=== PATIENT | male | born 1985 | race Caucasian/White ===

== ENCOUNTER 2023-03-13 00:22 | Day surgery (SDC) | payer MEDICARE, SELFPAY ==
[2023-02-22 08:49] VITALS: BMI 23.3
--- NOTE | 2023-03-11 11:13 | SUR.PREOP ---
Patient called regarding upcoming procedure. Reviewed preop instructions, appointment times, and procedure prep.
[2023-03-13 09:23] VITALS: BP 142/74; PULSE 74; RESP 18; TEMP 36.9; O2SAT 100
[2023-03-13] MEDS: LACTATED RINGERS 1,000 ML 150 ML IV CONT (09:31)
--- NOTE | 2023-03-13 09:48 | WPDANESEPPF ---
Anes - Initial Pre Proc Eval Procedure: Operation Date: 03/13/23 10:30 Proposed Procedures p Esophagogastroduodenoscopy - Chip Moncada MD Date/Time: 03/13/23 09:48 Surgeon: Chip Moncada MD Pre Op Diagnosis: Dysphagia,unspecified Patient Data Age: 37 Gender: M Height: 1.8 m Weight: 79.9 kg Last Vital Signs Temp 98.4 F 03/13/23 09:23 Pulse 74 03/13/23 09:23 Resp 18 03/13/23 09:23 BP 142/74 H 03/13/23 09:23 Pulse Ox 100 03/13/23 09:23 O2 Del Method Room Air 03/13/23 09:23 Allergies Allergy/AdvReac Type Severity Reaction Status Date / Time Penicillins Allergy Hives Verified 03/13/23 09:22 Home Medications Medication Instructions Recorded Confirmed Type No Home Medications 02/22/23 03/13/23 History Patient hx anesthesia problems: none Family hx anesthesia problems: none Results Review: All pre-operative results and documents have been reviewed as part of the pre-operative evaluation. [facility] Social History Social History Smoking status: Current every day smoker Tobacco type: e-cigarettes/vaping Alcohol intake: current Drinks per week: 4 Substance use type: does not use Living arrangements: with family Spiritual care concerns: No Anes - Eval Final PreProcedure Day of Procedure 03/13/23 09:48 Patient weight: normal Heart: regular rate and rhythm Lungs: clear to auscultation Airway: Mallampati scale class II Neurological: alert and oriented Last oral intake: >/= 8 hours ASA classification: II Emergent: no Anesthetic plan: proceed Anesthesia type and monitoring: general GIVS and standard monitoring Results Review: All pre-operative results and documents have been reviewed as part of the pre-operative evaluation. Informed Consent: The patient's anesthetic plan and its attendant risks and benefits were discussed with the patient/family/POA. Questions were solicited and answers provided to the satisfaction of the patient/family/POA.
--- NOTE | 2023-03-13 10:42 | PM.HPGS ---
History of Present Illness History of Present Illness Consent: Risks, benefits, and alternatives have been discussed and questions answered. Patient agrees to proceed with procedure. Chief complaint: Dysphagia,unspecified Narrative: Calvin Clinton is a 37 year old male with dysphagia after eating, never had EGD, he is not taking ppi Review of Systems Constitutional: Constitutional: Denies headache(s) and Denies weakness Eyes: Eyes: Denies blurry vision ENT: Reports Normal hearing present, Denies headache(s) and Denies neck pain Cardiovascular: Cardiovascular: Denies chest pain and Denies dyspnea Respiratory: Respiratory: Denies dyspnea Gastrointestinal: Gastrointestinal: Reports no additional gastrointestinal complaints Genitourinary: Genitourinary: Denies dysuria Musculoskeletal: Musculoskeletal: Denies neck pain Integumentary/Breasts: Skin/Breast: Denies dry skin Neurologic: Reports Normal hearing present, Denies headache(s) and Denies weakness Psychiatric: Psychiatric: Denies anxiety Endocrine: Endocrine: Denies change in body appearance Hematologic/Lymphatic: Hematologic/Lymphatic: Denies easy bleeding Allergic/Immunologic: Allergic/Immunologic: Denies urticaria PMFSH Past Medical History Medical History (Updated 03/13/23 @ 10:42 by Chip Moncada MD) Dysphagia Social History Social History Smoking status: Current every day smoker Tobacco type: e-cigarettes/vaping Alcohol intake: current Drinks per week: 4 Substance use type: does not use Living arrangements: with family Spiritual care concerns: No Meds Home Medications and Allergies Home Medications Medication Instructions Recorded Confirmed Type No Home Medications 02/22/23 03/13/23 History Allergies Allergy/AdvReac Type Severity Reaction Status Date / Time Penicillins Allergy Hives Verified 03/13/23 09:22 Vital Signs Vital Signs - 24 hr 03/13/23 09:23 Temperature 98.4 F Pulse Rate 74 Respiratory Rate 18 Blood Pressure 142/74 H Pulse Oximetry 100 Oxygen Delivery Room Air Exam Const: General: comfortable and no acute distress HENMT: Face/Nose/Sinus: Normal nares present Eyes: General: appearance normal, both eyes and all related structures Neck: Neck: no JVD Resp: Auscultation: clear to auscultation bilaterally Cardio: Rate: regular rate Rhythm: regular rhythm GI: Inspection: non-distended GI Palp: Yes Soft to palpation Skin: General skin exam: normal color Neuro: General: gait normal Speech: normal speech Extrem: General: normal to inspection Psych: Mental Status: mental status grossly normal Assessment and Plan Assessment and plan (1) Dysphagia: Code(s): R13.10 - Dysphagia, unspecified Status: Acute Assessment and Plan: egd with bx will assess if needs dilatation
[2023-03-13] MEDS: BENZOCAINE (*SP) 60 ML SPRAY CAN (HURRICAINE) 1 SPRAY MUCOUS MEM (10:51)
[2023-03-13 11:10] VITALS: BP 105/63; PULSE 83; RESP 21; O2SAT 100
[2023-03-13 11:20] VITALS: BP 100/63; PULSE 75; RESP 20; O2SAT 100
[2023-03-13 11:30] VITALS: BP 114/70; PULSE 72; RESP 23; O2SAT 100
== END 2023-03-13 11:44 | disposition home or self-care (01) ==
PROVIDERS: PCP Internal Medicine; Visit Provider Internal Medicine Gastroenterology
PROC: 0DJ08ZZ Inspection of Upper Intestinal Tract, Via Natural or Artificial Opening Endoscopic (ICD-10-PCS; CPT 43235; principal; 2023-03-13 10:30)
DX: K22.2 Esophageal obstruction (principal); K20.0 Eosinophilic esophagitis; F17.290 Nicotine dependence, other tobacco product, uncomplicated
CPT/HCPCS: 43249; 43239; 88305; C1726; J2704; J7120

== ENCOUNTER 2024-06-22 12:40 | Outpatient (CLI) | payer MEDICARE, SELFPAY ==
--- NOTE | ~2024-06-22 | XR_ITS ---
Clinical Indication: Asthma PA and lateral views of the chest: Comparison: None Findings: The lungs are clear, without evidence of focal consolidation or pleural effusion. Cardiome diastinal silhouette is within normal limits. Bones and soft tissues are unremarkable. Impression: Normal chest. Reviewed, dictated and finalized at location . Impression: Normal chest.
--- OUTSIDE RECORDS SUMMARY | 2024-06-22 14:03 | XMS_ITS | Data Portability ---
Author Organization [employer], Main Office Address [address] [place] [address] Assessment No assessment recorded. Plan of Treatment Reminders Order Date Submit Date Provider Last Modified By Organization Details Last Modified Time Details Appointments None recorded. Lab vitamin B12, serum 024 024 [email or web address] [facility] - Outpatient Lab, [address] [place], [address], 4 12:08:57 magnesium , serum or plasma 024 024 [email or web address] [facility] Outpatient Lab, [address] [place], [address], 4 12:08:57 lipid panel, serum 024 024 [facility] Outpatient Lab, [address] [place], [address], 4 14:04:37 CMP, serum or plasma 024 024 [facility] Outpatient Lab, [address] [place], [address], 4 14:04:41 CBC w/ auto diff 024 024 [email or web address] [facility] Outpatient Lab, [address] [place], [address], 4 12:08:57 testoster one, free + total, serum 024 024 [email or web address] [facility] Outpatient Lab, [address] [place], [address], 4 12:08:57 TSH, serum or plasma [id number] [place] [address] Outpatient Lab, [address] [place], [address], 4 12:08:57 T4, free, serum [id number] Outpatient Lab, [address] [place], [address], 4 12:08:58 lipid panel, serum 023 023 [facility] Outpatient Lab, [address] [place], [address], 3 14:40:36 CMP, serum or plasma 023 023 [facility] Outpatient Lab, [address] [place], [address], 3 14:40:39 CBC w/ auto diff 023 023 [facility] Outpatient Lab, [address] [place], [address], 3 13:09:46 TSH, serum or plasma 023 023 [facility] Outpatient Lab, [address] [place], [address], 3 18:43:36 T4, free, serum 023 023 [facility] Outpatient Lab, [address] [place], [address], 3 18:39:57 testoster one, total, serum [id number] [place] [address] Outpatient Lab, [address] [place], [address], 3 16:15:30 Referral None recorded. Procedures None recorded. Surgeries None recorded. Imaging None recorded. Medication Orders None recorded. Patient TargetsNo targets recorded. Patient Instructions Encounter Date Encounter Id Patient Instructions Last Modified By Organization Details Last Modified Time 07/24/2022 [id number] Follow-up for Klinefelter syndrome-testicula r hypofunction. Will check blood work consisting of CBC, CMP, lipid and thyroid. Continue on current Rx follow-up in six months [email or web address] Not available 07/24/2022 11:19:26 01/22/2023 [id number] Follow-up dysphagia -testicular hypofunction -Klinefelter syndrome. Will continue on current Rx will set up for upper endoscopy to further assess. Has had recent blood work performed which look otherwise adequate. Will continue with current Rx and follow-up in six months Portions of the record may have been created with voice recognition software. Occasional wrong-word or [id number] substitutions may have occurred due to the inherent limitations of voice recognition software. Read the chart carefully and recognize, using context, where substitutions have occurred. Set up for upper endoscopy for dysphagia Next Appt: 6 Months Approximate Date: 07/21/2023 [email or web address] Not available 01/22/2023 12:32:46 07/23/2023 [id number] Klinefelter syndrome, eosinophilic esophagitis and testicular hypofunction. Plan is to continue on current Rx will check blood work consisting of CBC, CMP, lipid, thyroid and testosterone levels. Continue on current Rx follow-up in six months Next Appointment: 6 Months Approximate Date: 01/19/2024 Portions of the record may have been created with voice recognition software. Occasional wrong-word or wzlty-[id number] substitutions may have occurred due to the inherent limitations of voice recognition software. Read the chart carefully and recognize, using context, where substitutions have occurred. [email or web address] Not available 07/23/2023 14:38:48 01/21/2024 [id number] Eosinophilic esophagitis, hyperlipidemia, Klinefelter syndrome and obesity class one all clinically stable. Does not any blood at this time instructed patient and patient's family that if symptoms persist may need to consider GI referral. May need a colonoscopy for further evaluation although does not appear to be anything serious at this time since he is unable to describe the frequency, intensity or specific natures of the discomfort. Follow Up: 6 Months Approximate Date: 07/19/2024 Created: Stephen Clemons M.D. 01.21.2024 01:43 PM Portions of the record may have been created with voice recognition software. Occasional wrong-word or fxinz-s-zthp substitutions may have occurred due to the inherent limitations of voice recognition software. Read the chart carefully and recognize, using context, where substitutions have occurred. [email or web address] Not available 01/21/2024 14:43:17 Reason for Referral None Reported. Results Created Date Observation Date Name Description Value Unit Range Abnormal Flag Note LastModifiedBy Organization Detail LastModifiedTime 07/25/1907/24/2022 CBC/C OMPLE TE BLD COUNT W/DIF F white blood cells 5.6 x10'3 /uL 4.2-10 .8 Not Available [facility] (Lab) [address] [place], [address], 07/24/2022 13:09:46 07/25/1907/24/2022 CBC/C OMPLE TE BLD COUNT W/DIF F red blood cells 4.67 x10'6 /uL 4.10-5 .80 Not Available [facility] (Lab) [address] [place], [address], 07/24/2022 13:09:46 07/25/1907/24/2022 CBC/C OMPLE TE BLD COUNT W/DIF F hemoglobin 14.4 g/dL 13.2-1 7.0 Not Available [facility] (Lab) [address] [place], [address], 07/24/2022 13:09:46 07/25/19 23 07/24/2022 CBC/C OMPLE TE BLD COUNT W/DIF F hematocrit 44.3 % 39.3-5 0.0 Not Available [facility] (Lab) [address] [place], [address], 07/24/2022 13:09:46 07/25/19 23 07/24/2022 CBC/C OMPLE TE BLD COUNT W/DIF F mean red cell volume 94.9 fL 80.0-9 7.0 Not Available [facility] (Lab) [address] [place], [address], 07/24/2022 13:09:46 07/25/19 23 07/24/2022 CBC/C OMPLE TE BLD COUNT W/DIF F mean red cell hemoglobin 30.8 pg 27.0-3 3.0 Not Available [facility] (Lab) [address] [place], [address], 07/24/2022 13:09:46 07/25/19 23 07/24/2022 CBC/C OMPLE TE BLD COUNT W/DIF F mean RBC HGB concentratio n 32.5 g/dL 31.0-3 6.0 Not Available [facility] (Lab) [address] [place], [address], 07/24/2022 13:09:46 07/25/19 23 07/24/2022 CBC/C OMPLE TE BLD COUNT W/DIF F red cell distribution width 13.4 % 11.8-1 5.5 Not Available [facility] (Lab) [address] [place], [address], 07/24/2022 13:09:46 07/25/19 23 07/24/2022 CBC/C OMPLE TE BLD COUNT W/DIF F platelets 229 x10'3 /uL 150-40 0 Not Available [facility] (Lab) [address] [place], [address], 07/24/2022 13:09:46 07/25/19 23 07/24/2022 CBC/C OMPLE TE BLD COUNT W/DIF F mean platelet volume 10.3 fL 9.0-12 .4 Not Available [facility] (Lab) [address] [place], [address], 07/24/2022 13:09:46 07/25/19 23 07/24/2022 CBC/C OMPLE TE BLD COUNT W/DIF F neutrophils 53.2 % 39.0-7 2.0 Not Available [facility] (Lab) [address] [place], [address], 07/24/2022 13:09:46 07/25/1907/24/2022 CBC/C OMPLE TE BLD COUNT W/DIF F lymphocytes 34.3 % 16.0-4 7.0 Not Available [facility] (Lab) [address] [place], [address], 07/24/2022 13:09:46 07/25/1907/24/2022 CBC/C OMPLE TE BLD COUNT W/DIF F monocytes 8.9 % 5.0-12 .0 Not Available [facility] (Lab) [address] [place], [address], 07/24/2022 13:09:46 07/25/1907/24/2022 CBC/C OMPLE TE BLD COUNT W/DIF F eosinophils 2.9 % 1.0-7. 0 Not Available [facility] (Lab) [address] [place], [address], 07/24/2022 13:09:46 07/25/1907/24/2022 CBC/C OMPLE TE BLD COUNT W/DIF F basophils 0.5 % 0.0-2. 0 Not Available [facility] (Lab) [address] [place], [address], 07/24/2022 13:09:46 07/25/1907/24/2022 CBC/C OMPLE TE BLD COUNT W/DIF F immature granulocytes 0.2 % 0.00-0 .50 Not Available [facility] (Lab) [address] [place], [address], 07/24/2022 13:09:46 07/25/19 23 07/24/2022 CBC/C OMPLE TE BLD COUNT W/DIF F neutrophils, absolute count 2.98 x10'3 /uL 1.5-8. 0 Not Available [facility] (Lab) [address] [place], [address], 07/24/2022 13:09:46 07/25/19 23 07/24/2022 CBC/C OMPLE TE BLD COUNT W/DIF F lymphocytes, absolute count 1.92 x10'3 /uL 1.07-3 .43 Not Available [facility] (Lab) [address] [place], [address], 07/24/2022 13:09:46 07/25/19 23 07/24/2022 CBC/C OMPLE TE BLD COUNT W/DIF F monocytes, absolute count 0.50 x10'3 /uL 0.29-0 .99 Not Available [facility] (Lab) [address] [place], [address], 07/24/2022 13:09:46 07/25/19 23 07/24/2022 CBC/C OMPLE TE BLD COUNT W/DIF F eosinophils, absolute count 0.16 x10'3 /uL 0.02-0 .53 Not Available [facility] (Lab) [address] [place], [address], 07/24/2022 13:09:46 07/25/19 23 07/24/2022 CBC/C OMPLE TE BLD COUNT W/DIF F basophils, absolute count 0.03 x10'3 /uL 0.01-0 .08 Not Available [facility] (Lab) [address] [place], [address], 07/24/2022 13:09:46 07/25/19 23 07/24/2022 CBC/C OMPLE TE BLD COUNT W/DIF F immature granulocytes ,absolute 0.01 x10'3 /uL 0.00-0 .05 Not Available [facility] (Lab) [address] [place], [address], 07/24/2022 13:09:46 07/25/19 23 07/24/2022 CBC/C OMPLE TE BLD COUNT W/DIF F nucleated red blood cells 0.0 % -0 Not Available [facility] (Lab) [address] [place], [address], 07/24/2022 13:09:46 07/25/19 23 07/24/2022 CBC/C OMPLE TE BLD COUNT W/DIF F NRBC# 0.00 x10'3 /uL Not Available [facility] (Lab) [address] [place], [address], 07/24/2022 13:09:46 07/25/19 23 07/24/2022 LIPID PANEL cholesterol 176 mg/dL 140-19 9 NIH KENAN NSUS RECOM MENDA TION FOR [place] STERO L: ADULT CHILD LOW RISK: <200 <170 BORDE RLINE : <200- 239 ----- HIGH RISK: >240 >200 Not Available [facility] (Lab) [address] [place], [address], 07/24/2022 14:40:35 07/25/1907/24/2022 LIPID PANEL triglyceride s 63 mg/dL 0-150 NIH KENAN NSUS REPOR T RECOM MENDA TION FOR TRIGL YCERI BRYAN: ADULT CHILD LOW RISK: <150 ----- BODER LINE: 150-1 99 ----- HIGH RISK: >200 ----- Not Available [facility] (Lab) [address] [place], [address], 07/24/2022 14:40:35 07/25/1907/24/2022 LIPID PANEL HDL cholesterol 37 mg/dL 40- low Not Available [facility] (Lab) [address] [place], [address], 07/24/2022 14:40:35 07/25/1907/24/2022 LIPID PANEL LDL cholesterol, calculated 126 mg/dL 0-130 NIH KENAN NSUS REPOR T RECOM MENDA TIONS FOR LDL: ADULT CHILD LOW RISK <130 <110 (OPTI MAL LDL) <100 ----- BORDE RLINE : 130-1 59 ----- HIGH RISK: >160 >130 A TRIGL YCERI DE RESUL T >400 INVAL IDATE S THE CALCU LATIO N FOR LDL FRACT IONAT ION - THE LDL RESUL T WILL NOT BE REPOR HIRO. Not Available [facility] (Lab) [address] [place], [address], 07/24/2022 14:40:35 07/25/19 23 07/24/2022 COMPR EHENS MIMI METAB OLIC PANEL sodium 142 mmol/ L 137-14 5 Not Available [facility] (Lab) [address] [place], [address], 07/24/2022 14:40:39 07/25/19 23 07/24/2022 COMPR EHENS MIMI METAB OLIC PANEL potassium 4.1 mmol/ L 3.5-5. 1 Not Available [facility] (Lab) [address] [place], [address], 07/24/2022 14:40:39 07/25/19 23 07/24/2022 COMPR EHENS MIMI METAB OLIC PANEL chloride 104 mmol/ L 98-107 Not Available [facility] (Lab) [address] [place], [address], 07/24/2022 14:40:39 07/25/19 23 07/24/2022 COMPR EHENS MIMI METAB OLIC PANEL carbon dioxide 29 mmol/ L 22-30 Not Available [facility] (Lab) [address] [place], [address], 07/24/2022 14:40:39 07/25/19 23 07/24/2022 COMPR EHENS MIMI METAB OLIC PANEL anion gap 13.1 mmol/ L 14-22 low Not Available [facility] (Lab) [address] [place], [address], 07/24/2022 14:40:39 07/25/19 23 07/24/2022 COMPR EHENS MIMI METAB OLIC PANEL glucose 82 mg/dL 70-99 Not Available [facility] (Lab) [address] [place], [address], 07/24/2022 14:40:39 07/25/1907/24/2022 COMPR EHENS MIMI METAB OLIC PANEL BUN 11 mg/dL 8-19 Not Available [facility] (Lab) [address] [place], [address], 07/24/2022 14:40:39 07/25/19 23 07/24/2022 COMPR EHENS MIMI METAB OLIC PANEL creatinine 0.69 mg/dL 0.66-1 .25 Not Available [facility] (Lab) [address] [place], [address], 07/24/2022 14:40:39 07/25/19 23 07/24/2022 COMPR EHENS MIMI METAB OLIC PANEL GFR >60 Refer ence Range : [place] GFR Healt hy Adult : >60 mL/mi n/1.7 3 m2 Chron ic Kidne y Disea se: 15-60 mL/mi n/1.7 3 m2 Kidne y Failu re: <15/m L/min /1.73 m2 www.n iddk. nih.g ov The MDRD study equat ion has not been valid ated in child roxanna <18 years of age; pregn ant women ; the elder ly >85 years of age; or in some racia l or ethni c subgr oups, such as Hispa nics. Outsi de the valid ated alex eters , estim ated GFR is less accur ate, requi ring clini candy judgm ent on a case- by-ca se basis . Clini candy inter preta tion for other races and ages must be made by the clini dahlia. The MDRD study equat ion has not been valid ated for the evalu ation of serum creat inine relat ed to nutri liza l statu s or medic ation usage . For perso ns <18 years of age, a pedia tric GFR calcu lator is avail able on the [facility] websi te: https ://bridger cullen.o jessica/pr ofess ional s/kdo qi/gf r_cal culat or Not Available [facility] (Lab) [address] [place], [address], 07/24/2022 14:40:39 07/25/1907/24/2022 COMPR EHENS MIMI METAB OLIC PANEL alkaline phosphatase 86 U/L 38-126 Not Available [facility] (Lab) [address] [place], [address], 07/24/2022 14:40:39 07/25/19 23 07/24/2022 COMPR EHENS MIMI METAB OLIC PANEL alanine aminotransfe rase 36 U/L 0-50 Not Available [facility] (Lab) [address] [place], [address], 07/24/2022 14:40:39 07/25/19 23 07/24/2022 COMPR EHENS MIMI METAB OLIC PANEL aspartate aminotransfe rase 37 U/L 15-46 Not Available [facility] (Lab) [address] [place], [address], 07/24/2022 14:40:39 07/25/19 23 07/24/2022 COMPR EHENS MIMI METAB OLIC PANEL bilirubin, total 0.70 mg/dL 0.20-1 .30 Not Available [facility] (Lab) [address] [place], [address], 07/24/2022 14:40:39 07/25/19 23 07/24/2022 COMPR EHENS MIMI METAB OLIC PANEL calcium 9.3 mg/dL 8.4-10 .2 Not Available [facility] (Lab) [address] [place], [address], 07/24/2022 14:40:39 07/25/19 23 07/24/2022 COMPR EHENS MIMI METAB OLIC PANEL total protein 7.3 g/dL 6.3-8. 2 Not Available [facility] (Lab) [address] [place], [address], 07/24/2022 14:40:39 07/25/19 23 07/24/2022 COMPR EHENS MIMI METAB OLIC PANEL albumin 4.7 g/dL 3.4-5. 0 Not Available [facility] (Lab) [address] [place], [address], 07/24/2022 14:40:39 07/25/19 23 07/24/2022 COMPR EHENS MIMI METAB OLIC PANEL globulin 2.6 g/dL 2.6-4. 2 Not Available [facility] (Lab) [address] [place], [address], 07/24/2022 14:40:39 07/25/19 23 07/24/2022 COMPR EHENS MIMI METAB OLIC PANEL A/G ratio 1.8 ratio 1.0-2. 0 Not Available [facility] (Lab) [address] [place], [address], 07/24/2022 14:40:39 07/25/19 23 07/24/2022 T4 FREE free T4 1.14 NG/dL 0.78-2 .19 Not Available [facility] (Lab) [address] [place], [address], 07/24/2022 18:39:57 07/25/1907/24/2022 TSH thyroid-stim ulating hormone 0.337 uIU/m L 0.465- 4.680 low Not Available [facility] (Lab) [address] [place], [address], 07/24/2022 18:43:36 07/25/19 23 07/25/2022 TESTO STERO NE,TO COURTNEY-L ABCOR P testosterone 364 NG/dL 264-91 6 Adult male refer javy kennedy yevgeniy is based on a popul ation of healt hy nonob lalito males (BMI <30) betwe en 19 and 39 years old. Declan cyr et.al . JCEM 2017, 102;1 161-1 173. PMID: 13168 103. Perfo rmed at: [facility] ([facility]) [address] [place] [address] 126 Lab Direc tor: Roly zaldivar PhD, Phone : [phone] Not Available [facility] (Lab) [address] [place], [address], 07/25/2022 09:14:29 08/29/19 24 08/29/2023 CBC/C OMPLE TE BLD COUNT W/DIF F white blood cells 5.1 x10'3 /uL 4.2-10 .8 Not Available [facility] (Lab) [address] [place], [address], 08/29/2023 13:52:51 08/29/19 24 08/29/2023 CBC/C OMPLE TE BLD COUNT W/DIF F red blood cells 4.55 x10'6 /uL 4.10-5 .80 Not Available [facility] (Lab) [address] [place], [address], 08/29/2023 13:52:51 08/29/19 24 08/29/2023 CBC/C OMPLE TE BLD COUNT W/DIF F hemoglobin 14.0 g/dL 13.2-1 7.0 Not Available [facility] (Lab) [address] [place], [address], 08/29/2023 13:52:51 08/29/19 24 08/29/2023 CBC/C OMPLE TE BLD COUNT W/DIF F hematocrit 40.4 % 39.3-5 0.0 Not Available [facility] (Lab) [address] [place], [address], 08/29/2023 13:52:51 08/29/19 24 08/29/2023 CBC/C OMPLE TE BLD COUNT W/DIF F mean red cell volume 88.8 fL 80.0-9 7.0 Not Available [facility] (Lab) [address] [place], [address], 08/29/2023 13:52:51 08/29/19 24 08/29/2023 CBC/C OMPLE TE BLD COUNT W/DIF F mean red cell hemoglobin 30.8 pg 27.0-3 3.0 Not Available [facility] (Lab) [address] [place], [address], 08/29/2023 13:52:51 08/29/19 24 08/29/2023 CBC/C OMPLE TE BLD COUNT W/DIF F mean RBC HGB concentratio n 34.7 g/dL 31.0-3 6.0 Not Available [facility] (Lab) [address] [place], [address], 08/29/2023 13:52:51 08/29/19 24 08/29/2023 CBC/C OMPLE TE BLD COUNT W/DIF F red cell distribution width 13.2 % 11.8-1 5.5 Not Available [facility] (Lab) [address] [place], [address], 08/29/2023 13:52:51 08/29/19 24 08/29/2023 CBC/C OMPLE TE BLD COUNT W/DIF F platelets 235 x10'3 /uL 150-40 0 Not Available [facility] (Lab) [address] [place], [address], 08/29/2023 13:52:51 08/29/19 24 08/29/2023 CBC/C OMPLE TE BLD COUNT W/DIF F mean platelet volume 11.2 fL 9.0-12 .4 Not Available [facility] (Lab) [address] [place], [address], 08/29/2023 13:52:51 08/29/19 24 08/29/2023 CBC/C OMPLE TE BLD COUNT W/DIF F neutrophils 47.5 % 39.0-7 2.0 Not Available [facility] (Lab) [address] [place], [address], 08/29/2023 13:52:51 08/29/19 24 08/29/2023 CBC/C OMPLE TE BLD COUNT W/DIF F lymphocytes 36.0 % 16.0-4 7.0 Not Available [facility] (Lab) [address] [place], [address], 08/29/2023 13:52:51 08/29/19 24 08/29/2023 CBC/C OMPLE TE BLD COUNT W/DIF F monocytes 9.2 % 5.0-12 .0 Not Available [facility] (Lab) [address] [place], [address], 08/29/2023 13:52:51 08/29/19 24 08/29/2023 CBC/C OMPLE TE BLD COUNT W/DIF F eosinophils 6.1 % 1.0-7. 0 Not Available [facility] (Lab) [address] [place], [address], 08/29/2023 13:52:51 08/29/19 24 08/29/2023 CBC/C OMPLE TE BLD COUNT W/DIF F basophils 0.8 % 0.0-2. 0 Not Available [facility] (Lab) [address] [place], [address], 08/29/2023 13:52:51 08/29/19 24 08/29/2023 CBC/C OMPLE TE BLD COUNT W/DIF F immature granulocytes 0.4 % 0.00-0 .50 Not Available [facility] (Lab) [address] [place], [address], 08/29/2023 13:52:51 08/29/19 24 08/29/2023 CBC/C OMPLE TE BLD COUNT W/DIF F neutrophils, absolute count 2.43 x10'3 /uL 1.5-8. 0 Not Available [facility] (Lab) [address] [place], [address], 08/29/2023 13:52:51 08/29/19 24 08/29/2023 CBC/C OMPLE TE BLD COUNT W/DIF F lymphocytes, absolute count 1.84 x10'3 /uL 1.07-3 .43 Not Available [facility] (Lab) [address] [place], [address], 08/29/2023 13:52:51 08/29/19 24 08/29/2023 CBC/C OMPLE TE BLD COUNT W/DIF F monocytes, absolute count 0.47 x10'3 /uL 0.29-0 .99 Not Available [facility] (Lab) [address] [place], [address], 08/29/2023 13:52:51 08/29/19 24 08/29/2023 CBC/C OMPLE TE BLD COUNT W/DIF F eosinophils, absolute count 0.31 x10'3 /uL 0.02-0 .53 Not Available [facility] (Lab) [address] [place], [address], 08/29/2023 13:52:51 08/29/19 24 08/29/2023 CBC/C OMPLE TE BLD COUNT W/DIF F basophils, absolute count 0.04 x10'3 /uL 0.01-0 .08 Not Available [facility] (Lab) [address] [place], [address], 08/29/2023 13:52:51 08/29/19 24 08/29/2023 CBC/C OMPLE TE BLD COUNT W/DIF F immature granulocytes ,absolute 0.02 x10'3 /uL 0.00-0 .05 Not Available [facility] (Lab) [address] [place], [address], 08/29/2023 13:52:51 08/29/19 24 08/29/2023 CBC/C OMPLE TE BLD COUNT W/DIF F nucleated red blood cells 0.0 % -0 Not Available [facility] (Lab) [address] [place], [address], 08/29/2023 13:52:51 08/29/19 24 08/29/2023 CBC/C OMPLE TE BLD COUNT W/DIF F NRBC# 0.00 x10'3 /uL Not Available [facility] (Lab) [address] [place], [address], 08/29/2023 13:52:51 08/29/19 24 08/29/2023 MAGNE SIUM magnesium 1.8 mg/dL 1.6-2. 3 Not Available [facility] (Lab) [address] [place], [address], 08/29/2023 14:04:32 08/29/19 24 08/29/2023 LIPID PANEL cholesterol 195 mg/dL 140-19 9 NIH KENAN NSUS RECOM MENDA TION FOR [place] STERO L: ADULT CHILD LOW RISK: <200 <170 BORDE RLINE : <200- 239 ----- HIGH RISK: >240 >200 Not Available [facility] (Lab) [address] [place], [address], 08/29/2023 14:04:37 08/29/19 24 08/29/2023 LIPID PANEL triglyceride s 225 mg/dL 0-150 high NIH KENAN NSUS REPOR T RECOM MENDA TION FOR TRIGL YCERI BRYAN: ADULT CHILD LOW RISK: <150 ----- BODER LINE: 150-1 99 ----- HIGH RISK: >200 ----- Not Available [facility] (Lab) [address] [place], [address], 08/29/2023 14:04:37 08/29/19 24 08/29/2023 LIPID PANEL HDL cholesterol 28 mg/dL 40- low Not Available [facility] (Lab) [address] [place], [address], 08/29/2023 14:04:37 08/29/19 24 08/29/2023 LIPID PANEL LDL cholesterol, calculated 122 mg/dL 0-130 NIH KENAN NSUS REPOR T RECOM MENDA TIONS FOR LDL: ADULT CHILD LOW RISK <130 <110 (OPTI MAL LDL) <100 ----- BORDE RLINE : 130-1 59 ----- HIGH RISK: >160 >130 A TRIGL YCERI DE RESUL T >400 INVAL IDATE S THE CALCU LATIO N FOR LDL FRACT IONAT ION - THE LDL RESUL T WILL NOT BE REPOR HIRO. Not Available [facility] (Lab) [address] [place], [address], 08/29/2023 14:04:37 08/29/19 24 08/29/2023 COMPR EHENS MIMI METAB OLIC PANEL sodium 140 mmol/ L 137-14 5 Not Available [facility] (Lab) [address] [place], [address], 08/29/2023 14:04:41 08/29/19 24 08/29/2023 COMPR EHENS MIMI METAB OLIC PANEL potassium 4.3 mmol/ L 3.5-5. 1 Not Available [facility] (Lab) [address] [place], [address], 08/29/2023 14:04:41 08/29/19 24 08/29/2023 COMPR EHENS MIMI METAB OLIC PANEL chloride 103 mmol/ L 98-107 Not Available [facility] (Lab) [address] [place], [address], 08/29/2023 14:04:41 08/29/19 24 08/29/2023 COMPR EHENS MIMI METAB OLIC PANEL carbon dioxide 28 mmol/ L 22-30 Not Available [facility] (Lab) [address] [place], [address], 08/29/2023 14:04:41 08/29/19 24 08/29/2023 COMPR EHENS MIMI METAB OLIC PANEL anion gap 13.3 mmol/ L 14-22 low Not Available [facility] (Lab) [address] [place], [address], 08/29/2023 14:04:41 08/29/19 24 08/29/2023 COMPR EHENS MIMI METAB OLIC PANEL glucose 94 mg/dL 70-99 Not Available [facility] (Lab) [address] [place], [address], 08/29/2023 14:04:41 08/29/19 24 08/29/2023 COMPR EHENS MIMI METAB OLIC PANEL BUN 10 mg/dL 8-19 Not Available [facility] (Lab) [address] [place], [address], 08/29/2023 14:04:41 08/29/19 24 08/29/2023 COMPR EHENS MIMI METAB OLIC PANEL creatinine 0.73 mg/dL 0.66-1 .25 Not Available [facility] (Lab) [address] [place], [address], 08/29/2023 14:04:41 08/29/19 24 08/29/2023 COMPR EHENS MIMI METAB OLIC PANEL GFR >60 Refer ence Range : [place] GFR Healt hy Adult : >60 mL/mi n/1.7 3 m2 Chron ic Kidne y Disea se: 15-60 mL/mi n/1.7 3 m2 Kidne y Failu re: <15/m L/min /1.73 m2 [email or web address] The MDRD study equat ion has not been valid ated in child roxanna <18 years of age; pregn ant women ; the elder ly >85 years of age; or in some racia l or ethni c subgr oups, such as Hispa nics. Outsi de the valid ated alex eters , estim ated GFR is less accur ate, requi ring clini candy judgm ent on a case- by-ca se basis . Clini candy inter preta tion for other races and ages must be made by the clini dahlia. The MDRD study equat ion has not been valid ated for the evalu ation of serum creat inine relat ed to nutri liza l statu s or medic ation usage . For perso ns <18 years of age, a pedia tric GFR calcu lator is avail able on the [facility] websi te: [email or web address] :[email or web address] [email or web address] [email or web address] rg/pr ofess ional s/kdo qi/gf r_cal culat or Not Available [facility] (Lab) [address] [place], [address], 08/29/2023 14:04:41 08/29/19 24 08/29/2023 COMPR EHENS MIMI METAB OLIC PANEL alkaline phosphatase 87 U/L 38-126 Not Available [facility] (Lab) [address] [place], [address], 08/29/2023 14:04:41 08/29/19 24 08/29/2023 COMPR EHENS MIMI METAB OLIC PANEL alanine aminotransfe rase 28 U/L 0-50 Not Available [facility] (Lab) [address] [place], [address], 08/29/2023 14:04:41 08/29/19 24 08/29/2023 COMPR EHENS MIMI METAB OLIC PANEL aspartate aminotransfe rase 29 U/L 15-46 Not Available [facility] (Lab) [address] [place], [address], 08/29/2023 14:04:41 08/29/19 24 08/29/2023 COMPR EHENS MIMI METAB OLIC PANEL bilirubin, total 0.60 mg/dL 0.20-1 .30 Not Available [facility] (Lab) [address] [place], [address], 08/29/2023 14:04:41 08/29/19 24 08/29/2023 COMPR EHENS MIMI METAB OLIC PANEL calcium 9.1 mg/dL 8.4-10 .2 Not Available [facility] (Lab) [address] [place], [address], 08/29/2023 14:04:41 08/29/19 24 08/29/2023 COMPR EHENS MIMI METAB OLIC PANEL total protein 7.2 g/dL 6.3-8. 2 Not Available [facility] (Lab) [address] [place], [address], 08/29/2023 14:04:41 08/29/19 24 08/29/2023 COMPR EHENS MIMI METAB OLIC PANEL albumin 4.9 g/dL 3.4-5. 0 Not Available [facility] (Lab) [address] [place], [address], 08/29/2023 14:04:41 08/29/19 24 08/29/2023 COMPR EHENS MIMI METAB OLIC PANEL globulin 2.3 g/dL 2.6-4. 2 low Not Available [facility] (Lab) [address] [place], [address], 08/29/2023 14:04:41 08/29/19 24 08/29/2023 COMPR EHENS MIMI METAB OLIC PANEL A/G ratio 2.1 ratio 1.0-2. 0 high Not Available [facility] (Lab) [address] [place], [address], 08/29/2023 14:04:41 08/29/19 24 08/29/2023 T4 FREE free T4 0.91 NG/dL 0.78-2 .19 Not Available [facility] (Lab) [address] [place], [address], 08/29/2023 14:29:20 08/29/19 24 08/29/2023 TSH thyroid-stim ulating hormone 1.150 uIU/m L 0.465- 4.680 Not Available [facility] (Lab) [address] [place], [address], 08/29/2023 14:34:23 08/29/19 24 08/30/2023 VITAM IN B12 (IAM JUDITH ) vb12 843 pg/mL 239-93 1 Not Available [facility] (Lab) [address] [place], [address], 08/30/2023 02:59:30 08/29/19 24 09/04/2023 TESTO STERO NE, FREE+ TOTAL LC/MS testosterone , total, lc/MS 304.9 NG/dL 264.0- 916.0 This [facility] LC/MS -MS metho d is curre jeff certi fied by the CDC Hormo ne Stand ardiz ation Progr am (HoSt ). Adult male refer ence inter yevgeniy is based on a popul ation of healt hy nonob lalito males (BMI <30) betwe en 19 and 39 years old. Declan cyr et.al . JCEM 2017, 102;1 161-1 173. PMID: 15015 103. Not Available [facility] (Lab) [address] [place], [address], 09/04/2023 11:14:02 08/29/19 24 09/04/2023 TESTO STERO NE, FREE+ TOTAL LC/MS testosterone , free 8.14 NG/dL 5.00-2 1.00 Not Available [facility] (Lab) [address] [place], [address], 09/04/2023 11:14:02 08/29/19 24 09/04/2023 TESTO STERO NE, FREE+ TOTAL LC/MS % free testosterone 2.67 % 1.50-4 .20 Perfo rmed at: BN - [facility] [place] [address] [facility] , [place] [address] Lab Direc tor: Berenice daniel MD, Phone : [phone] Not Available [facility] (Lab) [address] [place], [address], 09/04/2023 11:14:02 09/04/19 24 09/04/2023 C REACT MIMI PROTE IN,UL TRA SENS C-reactive protein 0.23 mg/dL 0.0-0. 5 Not Available [facility] (Lab) [address] [place], [address], 09/04/2023 21:03:23 09/04/19 24 09/09/2023 LIPOP ROTEI N (A) lipoprotein (A) <8.4 nmol/ L <75.0 Res ults verif ied by repea t testi ng Note: Value s great er than or equal to 75.0 nmol/ L may indic ate an indep enden t risk facto r for CHD, but must be evalu ated with cauti on when appli ed to non-C aucas darlene popul ation s due to the influ ence of medardo ic facto rs on Lp(a) acros s ethni citie s. Perfo rmed at: CB - [facility] [address] [place] [address] Lab Direc tor: Roly zaldivar PhD, Phone : [phone] Not Available [facility] (Lab) [address] [place], [address], 09/09/2023 15:10:12 Result Notes None recorded. Problems Name Problem SNOMED Code Status Onset Date Resolution Date Notes Provider Name and Address Organization Details Recorded Time Testicula r hypofunct ion 568022107 Active 2018 Not Available [employer] 3 15:16:38 Klinefelt er's syndrome, XXYY 352855340 Active 2018 Not Available [employer] 3 15:16:38 Diplopia 70929083 Active Not Available [facility] 3 15:16:38 Klinefelt er's syndrome, XXY 619659478 Completed 201810/31/2018 Not Available [facility] 3 15:16:38 Dysphagia 73169327 Active Not Available [facility] 3 15:16:38 Eosinophi lic esophagit is 036265200 Active 2023 Stephen Clemons MD [address], [place], [address] , [facility] [employer] 4 08:11:19 Celluliti s of right foot 63024077606 413912 Active 2023 Stephen Clemons MD [address], [address], [place], [address] , [facility] [employer] 4 12:48:31 Fatigue 83954935 Active 2023 Stephen Clemons MD [address], [address], [place], [address] , [facility] 4 14:38:32 Hyperlipi demia 71218920 Active 2023 Kim Cottrell CMA null, [place] [facility] 4 11:40:27 Hyperchol esterolem ia 25831995 Active 2023 Stephen Clemons MD [address], [address], [place], [address] , [facility] 4 11:44:05 Obesity 205127617 Active 2023 Stephen Clemons MD [address], [place], [address] , [facility] 4 14:39:35 Asthma 417435337 Active 2024 Stephen Clemons MD [address], [place], [address] , [place] [facility] 5 11:39:20 Problem Notes None recorded. Medical Equipment None Reported. Allergies Allergen ID Allergen Name Allergen Category Reaction Reaction Severity Criticality Documentation Date Start Date Code Code System Note Provider Name and Address Organization Details Recorded Time 82458 Product containin g penicilli n (product) medicatio n rash Not available Not available 05/02/2022 11540 8001 SNOMED Not Available [facility] 3 15:20:00 Medications Name Sig Start Date Stop Date Status Note LastModified by Organization Details LastModified Time atorvastati n 20 mg tablet Take 1 tablet by mouth once daily 2024 active Not Available Not Available Not Avai lable clindamycin HCl 300 mg capsule TAKE 1 CAPSULE BY MOUTH EVERY 6 HOURS 07/22 completed Not Available Not Available Not Available Zithromax Z-Ze 250 mg tablet TAKE 2 TABLETS (500 MG) BY ORAL ROUTE ONCE DAILY FOR 1 DAY THEN 1 TABLET (250 MG) BY ORAL ROUTE ONCE DAILY FOR 4 DAYS 2024 active Not Available Not Available Not Avai lable dexamethaso ne 2 mg tablet One Tablet TID for 3 Days One Tablet BID for 3 Days One Table once daily 3 days active Not Available Not Available No t Available pantoprazol e 40 mg tablet,bindu yed release TAKE 1 TABLET BY MOUTH ONCE DAILY active Not Available Not Available No t Available albuterol sulfate HFA 90 mcg/actuati on aerosol inhaler 2 puffs four times a day 2024 active Not Available Not Available Not Avai lable diazepam 5 mg tablet TAKE 1 TABLET BY MOUTH 30 MINUTES PRIOR TO APPOINTME NT 07/24 completed Not Available Not Available Not Available Bactrim DS 800 mg-160 mg tablet Take 1 tablet every 12 hours by oral route for 5 days. 12/01 completed Not Available Not Available Not Available Androderm 2 mg/24 hour transdermal 24 hour patch Apply 1 patch every day by transderm al route. 11/19 completed Not Available Not Available Not Available Vitals Date Recorded Body mass index (BMI) Body height Oxygen saturation Oxygen saturation in Arterial blood by Pulse oximetry Heart rate Body temperature Body weight Systolic blood pressure Diastolic blood pressure Provider Name and Address Organization Details Last Updated DateTime 2 23.3 kg/m2 182.88 cm 98 % 98 % 74 /min 97 [degF] 05037.8 9 g 120 mm[Hg] 70 mm[Hg] Not Available [facility] 3 15:14:35 Date Recorded Body height Body mass index (BMI) Body weight Heart rate Body temperature Oxygen saturation Oxygen saturation in Arterial blood by Pulse oximetry Systolic blood pressure Diastolic blood pressure Provider Name and Address Organization Details Last Updated DateTime 3 180.34 cm 24.7 kg/m2 38469.8 5 g 77 /min 97 [degF] 98 % 98 % 120 mm[Hg] 62 mm[Hg] Vaishali Taylor [employer] 3 10:46:19 Date Recorded Body height Body mass index (BMI) Body weight Body temperature Heart rate Oxygen saturation Oxygen saturation in Arterial blood by Pulse oximetry Systolic blood pressure Diastolic blood pressure Provider Name and Address Organization Details Last Updated DateTime 3 180.34 cm 24.1 kg/m2 11453.4 8 g 98.2 [degF] 88 /min 99 % 99 % 104 mm[Hg] 68 mm[Hg] Azul Glover [employer] 3 12:00:57 Date Recorded Body height Body mass index (BMI) Body weight Heart rate Body temperature Oxygen saturation Oxygen saturation in Arterial blood by Pulse oximetry Systolic blood pressure Diastolic blood pressure Provider Name and Address Organization Details Last Updated DateTime 4 180.34 cm 28.3 kg/m2 18295.2 5 g 69 /min 98 [degF] 98 % 98 % 122 mm[Hg] 70 mm[Hg] Azul Glover [employer] 4 14:24:12 Date Recorded Body height Body mass index (BMI) Body weight Heart rate Body temperature Oxygen saturation Oxygen saturation in Arterial blood by Pulse oximetry Systolic blood pressure Diastolic blood pressure Provider Name and Address Organization Details Last Updated DateTime 4 180.34 cm 30.7 kg/m2 54330.3 2 g 86 /min 97 [degF] 98 % 98 % 122 mm[Hg] 70 mm[Hg] Azul Glover [employer] 4 14:24:33 Social History Question Answer Notes LastModified by Organizat ion Details LastModified Time In The 14 Days Before Symptom Onset, Have You Had Close Contact With A Laboratory-confirme d COVID-19 While That Case Was Ill? No [id number] Information not available 05/02/2022 In The 14 Days Before Symptom Onset, Have You Had Close Contact With A Person Who Is Under Investigation For COVID-19 While That Person Was Ill? No [id number] Information not available 05/02/2022 Have You Recently Traveled Abroad? No [id number] Information not available 05/02/2022 Sex: Unknown Functional Status None recorded. Mental Status None recorded. Family History Nothing Reported Notes:Mother living 59 good health Father living 67 with ASHD and Cholesterol Two brothers both living one with psoriasis. Medical History Condition Response BLINDNESS N NERVE DISEASE N RHEUMATIC FEVER N BLADDER PROBLEMS N KIDNEY STONES N MRSA N OTHER # 1 N POLIO N LUNG DISEASE/DISORDER N HISTORY OF DRUG ABUSE N RADIATION / CHEMOTHERAPY N COPD N Other # 2 N BLOOD DISEASES N EAR OR HEARING PROBLEMS N MUMPS N SHINGLES N DEPRESSION (INCLUDING POST ) N BOWEL PROBLEMS N FAILED BACK SYNDROME N STROKE/TIA N ULCERS N BENIGN PROSTATIC HYPERPLASIA N MEASLES N HYPOTENSION N MYOCARDIAL INFARCTION N OBESITY N GERD/NAUSEA N ANEURYSM N URINARY/BLADDER/KIDNEY PROBLEMS N CORONARY ARTERY DISEASE (CAD) N Do you have Advance directive? N ADDICTION CONCERNS N ENDOMETRIOSIS N Impotence N USE OF BLOOD THINNERS N SKIN PROBLEMS N GASTROINTESTINAL DISORDER N PERIPHERAL VASCULAR DISEASE N MUSCLE,JOINT OR BONE PROBLEMS N GASTROINTESTINAL BLEEDING N BLOOD CLOTS N ASTHMA N Abdominal Pain N CATARACTS N ARTERIAL INSUFFICIENCY N ERECTILE DYSFUNCTION N VARICOSITIES N GI PROBLEMS N Low Testosterone N INFERTILITY N AIDS/HIV N CHEMOTHERAPY / RADIATION N LIVER DISEASE N MALE HYPOGONADISM N HYPERTENSION N Deficiency N TOURETTE'S N ANXIETY DISORDER N BLOOD TRANSFUSION N ANEMIA/BLOOD DISORDER N CHRONIC EAR INFECTIONS N TUBERCULOSIS N GLAUCOMA N FOOT PROBLEM N DIVERTICULITIS N CHICKENPOX N SLEEP APNEA N BACK INJECTIONS N ALLERGIES/HAYFEVER N INFECTIOUS DISEASE N HEART ARRHYTHMIA N PROSTATE N ESRD N INSOMNIA N HIGH CHOLESTEROL / HYPERLIPIDEMIA N HYPERTHYROIDISM N EYE PROBLEMS N PVD N EDEMA N CHRONIC PAIN SYNDROME N HYPOTHYROIDISM N CONSTIPATION N CAROTID BLOCKAGE N BACK / NECK PROBLEMS N HAVE YOU BEEN HOSPITALIZED OR SEEN IN TH E ER IN THE PAST YEAR ? N ATHEROSCLEROSIS N BREAST PROBLEMS N DIALYSIS N POLYCYSTIC OVARIES N ECZEMA N OSTEOPOROSIS N ARTHRITIS N NO SIGNIFICANT PAST MEDICAL HISTORY N APPENDICITIS N DIABETES, TYPE N BAD TEETH N VON WILLIBRAND'S DISEASE N ENT N HEARTBURN / REFLUX N GI N AUTISM SPECTRUM DISORDER (ASD) N POST LAMINECTOMY SYNDROME N HEPATITIS / LIVER DISEASE N GOUT N SLEEP DISORDER N ALZHEIMER'S DISEASE N Brain Problems N HERPES N DEMENTIA N HEADACHES/MIGRAINES N SEIZURES/EPILEPSY N VASCULAR DISEASE N PACEMAKER N DIZZINESS N HEART DISEASE/HEART PROBLEMS N KIDNEY DISEASE N MULTIPLE SCLEROSIS N NEUROPSYCHOLOGICAL N CARDIAC ARRHYTHMIA N CANCER: SPECIFY N ATRIAL FIBRILLATION N Gall Stones N PULMONARY EMBOLISM N AUTOIMMUNE DISEASE N Immunizations Vaccine Type Date Status Note Provider Nam e and Address Organization Details Recorded Time influenza, unspecified formulation 4 completed Kim Cottrell CMA null, [place] [facility] [employer] [facility] 04/17/2023 17:36:27 influenza nasal, unspecified formulation 4 completed Kim Cottrell CMA null, [place] [facility] [employer] [facility] 03/26/2024 10:09:30 COVID-19, mRNA, LNP-S, PF, 30 mcg/0.3 mL dose 1 completed Not Available [facility] 05/02/2022 15:19:52 COVID-19, mRNA, LNP-S, PF, 30 mcg/0.3 mL dose 1 completed Not Available [facility] 05/02/2022 15:19:52 Influenza, split virus, trivalent, preservative 4 completed Not Available [facility] 05/02/2022 15:19:52 Past Encounters Encounter ID Performer Location Encounter Start Date Encounter Closed Date Diagnosis/Indication Diagnosis SNOMED-CT Code Diagnosis ICD10 Code Diagnosis Note [id number] [facility] [place] [address] [place] [address] 06/13/2021 00:00:00 06/13/2021 15:22:38 [id number] [facility] [place] [address] [place] [address] 12/12/2021 00:00:00 12/12/2021 15:17:09 [id number] Stephen Clemons MD [facility] Internal [facility] [place] [address] [place] [address] [place] [address] 07/24/2022 10:43:15 07/24/2022 11:28:14 Klinefelter's syndrome, XXYY 443524456 Q98.1 Testicular hypofunction 679569066 E29.1 Screening for cardiovascular system disease 009610721 Z13.6 [id number] Stephen Clemons MD [facility] Internal [facility] [place] [address] [place] [address] [place] [address] 01/22/2023 11:48:00 01/22/2023 12:38:53 Dysphagia 43299976 R13.10 Testicular hypofunction 540516225 E29.1 Klinefelte r's syndrome, XXYY 988085913 Q98.1 [id number] Stephen Clemons MD [facility] Internal [facility] [place] [address] [place] [address] [place] [address] 07/23/2023 14:17:41 07/23/2023 14:43:57 Klinefelter's syndrome, XXYY 178420097 Q98.1 Eosinophil ic esophagitis 051416270 K20.0 Testicular hypofunction 585831644 E29.1 Screening for cardiovascular system disease 899814913 Z13.6 Fatigue 76804106 R53.83 [id number] Stephen Clemons MD [facility] Primary Care [facility] [address] [facility] [address] [place] [address] 01/21/2024 14:17:59 01/21/2024 14:50:55 Eosinophilic esophagitis 669193087 K20.0 Hypercholesterolemia 136 97297 E78.00 Obesity 086402401 E66.9 Klinefelte r's syndrome, XXYY 658594527 Q98.1 Health Concerns Section Related Observation LastModified by Organization Detai ls LastModified Time None Recorded Concern Status LastModified by Organization Details LastModified Time None Recorded Advance Directives Directive None Recorded Payers Encounter Date Sequence Insurance Name Policy Number Policy Moody Covered Member ID Moody Member ID Guarantor Name 07/24/2022 1 UMR (PPO) [id number] Kiara Clinton [id number] Calvin Clinton 07/24/2022 1 [place] Calvin Clinton [id number] Calvin Clinton 01/22/2023 1 [employer] (MEDICARE REPLACEMENT/ ADVANTAGE - PPO) Calvin Villarway [id number] Calvin Clinton 07/23/2023 1 [employer] (MEDICARE REPLACEMENT/ ADVANTAGE - PPO) Calvin Villarway [id number] Calvin Clinton 01/21/2024 1 [employer] (MEDICARE REPLACEMENT/ ADVANTAGE - PPO) Calvin Clinton [id number] Calvin Clinton Notes Date Note Type Note Provider Name and Address Organization Details Recorded Time text/html Patient Name: Calvin ClintonDate Of Service: Saturday ( 07.24.2022 ): 1985 Age: 36 There has been approximately a 5 lb weight gain since 12/12/2021. This represents approximately a 2.9% change in weight. Weight change attributable to lifestyle changes. Vital Signs:Blood Pressure: Sitting Rt. Arm 120/62Pulse: Sitting 77 /min and RegularRespirations: 12Height 71 in or 1.8 mWeight 177 lb or 80.3 kgBMI 24.7Temperature: 97 F or 36.1 CPulse Oximetry: 98 % at rest on no oxygen Chief Complaint: Addressed in HPI Problems or conditions discussed in the HPI were the only ones reviewed during the encounter.Only social and family history addressed in the HPI were reviewed during this encounter. Attendant(s): None Constitutional and Systemic Symptoms: none Medication Reconciliation: from medication list. History of Present Illness #1. History of Klinefelter syndrome XXYY stable. Also history of some mild testicular hypofunction. Currently is doing well no interval complaints of any new problems.: #2. Testicular Hypofunction: Stable. Libido and energy levels are good. No significant problems with performing daily activities. Taking medication: no medication. No other systemic complaints related to hypogonadism.ADRs List Reviewed 3Penicillin RashVaccination and Dnfspyeajckz4524-84 InfluenzaSurgical HistoryOral SurgeryPreventative Testing Confirmed by Our Qpmzmwt1605/27/2018 ALBUMIN 4.6 G/DLSocial HistoryDoes not smokeDrinks sociallyDisabled and not sexually activeFamily HistoryMother living 59 good healthFather living 67 with ASHD and CholesterolTwo brothers both living one with psoriasis. Stephen Clemons MD [address] [facility], [facility] [address], [place], [address], [place] [facility] [employer] [facility] 07/24/2022 11:19:42 3 text/html Patient Name: Calvin Mercer Of Service: Saturday ( 01.22.2023 ): 1985 Age: 37 There has been approximately a 4 lb weight loss since 07/24/2022. This represents approximately a 2.3% change in weight. Weight change attributable to lifestyle changes. Vital Signs:Blood Pressure: Sitting Rt. Arm 104/68Pulse: Sitting 88 /min and RegularRespiratory Rate: 12Height 71 in or 1.8 mWeight 173 lb or 78.5 kgBMI 24.1Temperature: 98.2 F or 36.8 CPulse Oximetry: 99 % at rest on no oxygen Chief Complaint: Addressed in HPI Problems or conditions discussed in the HPI were the only ones reviewed during the encounter.Only social and family history addressed in the HPI were reviewed during this encounter. Attendant(s): NoneConstitutional and Systemic Symptoms:none Medication Reconciliation: from medication list. History of Present Illness #1. Complaining of intermittent dysphagia particularly with both solids as well as some liquid foods. Patient is not a very good historian but does notice some regurgitation of food after eating it. As unable to distinguish how long the food may have been down before it comes back up. Denies any actual heartburn because of the motility disturbance needs to have an upper endoscopy for further evaluation to rule out any type of motility or obstructive abnormality.: #2. 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 Is clinically stable not taking any really supplements at this time.: #3. Gilmore failure syndrome XXYY clinically stable. No interval complaints any new problems. Has had no other symptomatic abnormalities. Had blood work performed back in July which looked adequate.:ADRs List Reviewed 11/21/2023Penicillin RashVaccination and Jkbqbuyixfgt8640-76 InfluenzaSurgical HistoryOral SurgeryPreventative Testing Confirmed by Our Uuhvusf2507/24/2022 ALBUMIN 4.7 G/DL NSocial HistoryDoes not smokeDrinks sociallyDisabled and not sexually activeFamily HistoryMother living 59 good healthFather living 67 with ASHD and CholesterolTwo brothers both living one with psoriasis. Stephen Clemons MD [address] [facility], [facility] [address], [place], [address], [facility] [employer] 01/22/2023 12:33:03 4 text/html Patient Name: Calvin Mercer Of Service: Saturday ( 07.23.2023 ): 1985 Age: 37 There has been approximately a 30 lb weight gain since 01/22/2023. This represents approximately a 17.3% change in weight. Weight change attributable to lifestyle changes. Vital Signs:Blood Pressure: Sitting Rt. Arm 122/70Pulse: Sitting 69 /min and RegularRespiratory Rate: 12Height 71 in or 1.8 mWeight 203 lb or 92.1 kgBMI 28.3Temperature: 98 F or 36.7 CPulse Oximetry: 98 % at rest on no oxygen Chief Complaint: Addressed in HPI Problems or conditions discussed in the HPI were the only ones reviewed during the encounter.Only social and family history addressed in the HPI were reviewed during this encounter. Attendant(s): father and MotherConstitutional and Systemic Symptoms:none Medication Reconciliation: from medication list. History of Present Illness #1. History of Klinefelter syndrome. Clinically stable. No interval complaints of any problems related to the chromosomal abnormality.: #2. Hx of esophageal reflux currently stable. Hx of Complications: none The severity, duration and intensity of symptoms have improved. Frequency: most meals Treatment consists medications taken on a regular basis. Current therapy includes Pantoprazole. There has been no nausea. No change in he frequency or intensity of symptoms. Has had no melena. Has had no . Discussed use of H2 antagonists NA. #3. Testicular Hypofunction: Stable. Libido and energy levels are good. No significant problems with performing daily activities. Taking medication: Injections when required. No other systemic complaints related to hypogonadism. Adverse Drug Reactions ReviewedPenicillin Rash Vaccination and Hiqptrzrywhe2861-43 Influenza Surgical Ayxfeux5988-43 Oral Surgery Preventative Mxwzrpm0003/13/2023 UPPER JAQSCYRDF43/23/2023 ALBUMIN 4.7 G/DL N Social HistoryDoes not smokeDrinks sociallyDisabled and not sexually active Family HistoryMother living 59 good healthFather living 67 with ASHD and CholesterolTwo brothers both living one with psoriasis. Stephen Clemons MD [address] [facility], [facility] [address], [place], [address], [facility] [employer] 07/23/2023 14:39:25 4 text/html Patient Name: Calvin Mercer Of Service: Saturday ( 01.21.2024 ): 1985 Age: 38 There has been approximately a 17 lb weight gain since 07/23/2023. This represents approximately a 8.4% change in weight. Weight change attributable to lifestyle changes. Vital Signs:Blood Pressure: Sitting Rt. Arm 122/70Pulse: Sitting 86 /min and RegularRespiratory Rate: 16Height 71 in or 1.8 mWeight 220 lb or 99.8 kgBMI 30.7Temperature: 97 F or 36.1 CPulse Oximetry: 98 % at rest on no oxygen Chief Complaint: Addressed in HPI Problems or conditions discussed in the HPI were the only ones reviewed during the encounter.Only social and family history addressed in the HPI were reviewed during this encounter. Attendant(s): NoneConstitutional and Systemic Symptoms:none Medication Reconciliation: from medication list. History of Present Illness #1. History of eosinophilic esophagitis clinically stable currently taking pantoprazole 40 mg daily and doing well. Has no complaints abdominal braden with the exception some left lower quadrant abdominal pain occurring on an intermittent basis. More associated with constipation than any change in frequency as far as diarrhea is concerned. No associated fever or chills. Can not rule out the possibility they may have some eosinophilic colitis.: #2. Type II Hypercholesterolaemia: Currently taking medication and tolerating well. No interval complaints of any muscle pain or arthralgia. No significant liver changes with medications. Last lipid panel: fair control. Therapy reviewed regarding treatment of cholesterol management and include diet and Atorvastatin Calcium. #3. Klinefelter syndrome XXYY clinically stable. No change in overall clinical status with regards to the hypogonadism.: #4. Hx of obesity. Currently Class 1 Obesity BMI 30-34.99. Has tried numerous dietary support and supplements with no benefit. Instructed on the health consequences of the obese status particularly cancer - diabetes and heart disease. Discussed other modalities of weight loss no . Potential candidate for bariatric surgery: No. Wishes to be evaluated by Dietary: No and was offered to be evaluated and instructed by business development intern on weight loss diet. Active Medication ListPantoprazole 40 MG TABLET One DailyAtorvastatin Calcium 20 MG TABLET One Daily Adverse Drug Reactions ReviewedPenicillin Rash Vaccination and Immunization( ) 2023-03 [id number] Oral Surgery Preventative Testing( ) 08/29/2023 Albumin 4.9 G/DL( ) 03/13/2023 Upper Endoscopy 03/13/2050 Social HistoryDoes not smokeDrinks sociallyDisabled and not sexually active Family HistoryMother living 61 good healthFather living 70 with ASHD and CholesterolTwo brothers both living one with psoriasis. Stephen Clemons MD [address] [facility], [facility] [address], [place], [address], [place] [employer] 01/21/2024 14:43:31
== END 2024-06-22 12:41 | disposition home or self-care (01) ==
PROVIDERS: PCP Internal Medicine; Visit Provider Internal Medicine
DX: J45.909 Unspecified asthma, uncomplicated (principal)
CPT/HCPCS: 71046

== ENCOUNTER 2024-11-18 18:48 | Emergency (ER) | payer MEDICARE, SELFPAY ==
[2024-11-18] VITALS (10 sets, daily range): BP systolic 113–117; BP diastolic 69–93; PULSE 79–94; RESP 18; TEMP 36.6; O2SAT 97–100
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
--- NOTE | 2024-11-18 19:45 | PC.NURSE ---
Pt currently at scan. Will give pt prescribed medication when pt returns.
[2024-11-18] MEDS: MORPHINE SULFATE (*CRX) 4 MG/ML INJ IV PUSH (20:09)
[2024-11-18] MEDS: ONDANSETRON INJ 4 MG/2 ML VIAL IV PUSH (20:10)
== END 2024-11-18 22:15 | disposition home or self-care (01) ==
PROVIDERS: Emergency Provider Physician Assistant; PCP Internal Medicine
DX: S52.532A Colles' fracture of left radius, initial encounter for closed fracture (principal); S02.2XXA Fracture of nasal bones, initial encounter for closed fracture; S00.81XA Abrasion of other part of head, initial encounter; S86.911A Strain of unspecified muscle(s) and tendon(s) at lower leg level, right leg, initial encounter; F17.290 Nicotine dependence, other tobacco product, uncomplicated; V18.0XXA Pedal cycle driver injured in noncollision transport accident in nontraffic accident, initial encounter
CPT/HCPCS: 29125; 70450; 70486; 72125; 73030; 73080; 73110; 73130; 73200; 73562; 96374; 96375; 99284; J2270; J2405

== ENCOUNTER 2025-01-04 00:02 | Emergency (ER) | payer MEDICARE, SELFPAY ==
--- NOTE | ~2025-01-04 | XR_ITS ---
Examination: XR chest 2V Clinical History: CHEST PAIN Comparison: 06/22/2024 Technique: PA and Lateral Findings: Cardiomediastinal silhouette normal size and configuration. Lungs clear. No acute bony abnormality. IMPRESSION: 1. No acute cardiopulmonary findings. Reviewed, dictated and finalized at location R. [facility]
--- NOTE | 2025-01-04 00:04 | ECG_ITS ---
Test Date: 2025-01-04 00:09:20 Measurements Intervals [place] Rate: 94 P: 67 WI: 147 QRS: 68 QRSD: 88 T: 18 QT: 313 QTc: 393 Interpretive Statements SINUS RHYTHM NONSPECIFIC ST & T-WAVE ABNORMALITY No previous ECG available for comparison Electronically Signed On 01-04-2025 06:42:44 DESIGN INSERTER by Carmenza Elliott M.D.
[2025-01-04 00:05] VITALS: BP 140/75; PULSE 94; RESP 16; TEMP 36.8; O2SAT 100
--- OUTSIDE RECORDS SUMMARY | 2025-01-04 00:05 | XMS_ITS | Data Portability ---
Author Organization [place] [facility] [employer] Main Office Address [address] [place] [address] Assessment No assessment recorded. Plan of Treatment Reminders Order Date Submit Date Provider Last Modified By Organization Details Last Modified Time Details Appointments None recorded. Lab magnesium, serum or plasma 2024 025 [facility] (formerly [facility]3] Outpatient Lab, [address] [place], [address], 16:48:01 vitamin B12, serum 2024 025 [facility] ([facility]3] Outpatient Lab, [address] [place], [address], 17:40:26 lipid panel, serum 2024 025 [facility] ([facility]3] Outpatient Lab, [address] [place], [address], 16:47:46 CMP, serum or plasma 2024 025 [facility] ([facility]3] Outpatient Lab, [address] [place], [address], 16:47:56 CBC w/ auto diff 2024 025 [facility] ([facility]3] Outpatient Lab, [address] [place], [address], 5 16:43:14 vitamin B12, serum [id number] [place] [address] Outpatient Lab, [address] [place], [address], 4 12:08:57 magnesium, serum or plasma 2023 024 [id number] [facility] Outpatient Lab, [address] [place], [address], 4 12:08:57 lipid panel, serum 2023 024 [facility]3] Outpatient Lab, [address] [place], [address], 4 14:04:37 CMP, serum or plasma 2023 024 [facility]3] Outpatient Lab, [address] [place], [address], 4 14:04:41 CBC w/ auto diff 2023 024 [facility] Outpatient Lab, [address] [place], [address], 4 12:08:57 testosteron e, free + total, serum 2023 024 [id number] [facility] Outpatient Lab, [address] [place], [address], 4 12:08:57 TSH, serum or plasma 2023 024 [email or web address] [facility] Outpatient Lab, [address] [place], [address], 4 12:08:57 T4, free, serum 2023 024 [email or web address] [facility] Outpatient Lab, [address] [place], [address], 4 12:08:58 Referral None recorded. Procedures None recorded. Surgeries None recorded. Imaging None recorded. Medication Orders methylpredn isolone 4 mg tablets in a dose pack 2024 025 [facility] 2425, [address] [place], [address], 14:32:19 Patient TargetsNo targets recorded. Patient Instructions Encounter Date Encounter Id Patient Instructions Last Modified By Organization Details Last Modified Time 01/22/2023 [id number] Follow-up dyspha awilda -testicular hypofunction -Klinefelter syndrome. Will continue on current Rx will set up for upper endoscopy to further assess. Has had recent blood work performed which look otherwise adequate. Will continue with current Rx and follow-up in six months Portions of the record may have been created with voice recognition software. Occasional wrong-word or s ound-a-like substitutions may have occurred due to the inherent limitations of voice recognition software. Read the chart carefully and recognize, using context, where substitutions have occurred. Set up for upper endoscopy for dysphagia Next Appt: 6 Months Approximate Date: 07/21/2023 [email or web address] Not available 01/22/2023 12:32:46 07/23/2023 [id number] Klinefelter syndrome, eosinophilic esophagitis and testicular hypofunction. Plan is to continue on current Rx will check blood work consisting of CBC, CMP, lipid, thyroid and testosterone levels. Continue on current Rx follow-up in six months Next Appointment: 6 Months Approximate Date: 01/19/2024 Portions of the record may have been created with voice recognition software. Occasional wrong-word or s ound-a-like substitutions may have occurred due to the inherent limitations of voice recognition software. Read the chart carefully and recognize, using context, where substitutions have occurred. [email or web address] Not available 07/23/2023 14:38:48 01/21/2024 [id number] Eosinophilic esophagitis, hyperlipidemia, Klinefelter syndrome and obesity [...] Up: 6 Months Approximate Date: 07/19/2024 Created: Radha Clemons M.D. 01.21.2024 01:43 PM Portions of the record may have been created with voice recognition software. Occasional wrong-word or s ound-a-like substitutions may have occurred due to the inherent limitations of voice recognition software. Read the chart carefully and recognize, using context, where substitutions have occurred. [email or web address] Not available 01/21/2024 14:43:17 07/21/2024 [id number] Patellar tendinitis. Will give a trial of a Medrol Dosepak to see if there is any improvement. Also obtain radiographic studies of the knee. Additional Orders - Directives - Recommendations 1. X-ray of the right knee Follow Up: 4 Months Approximate Date: 11/18/2024 Portions of record are template driven. When necessary additional context will be provided. Additionally some portions have been created with voice recognition software. Occasional wrong-word or s ound-a-like substitutions may have occurred due to the inherent limitations of voice recognition software. Read the chart carefully and recognize, using context, where substitutions may have occurred. Created: Radha Clemons M.D. 07.21.2024 01:32 PM [email or web address] Not available 07/21/2024 14:32:21 12/10/2024 [id number] Medicare wellnes s evaluation risk assessment stable. Will obtain a CBC, CMP and lipid panel. Will check a B12 and magnesium level because of the prolonged use of PPI inhibitors. We will set up with one of the general surgeons for further evaluation. There is a remote family history of some colon cancer in the maternal cm. Clinically doing well otherwise. Will follow-up in six months Advised on FDA Recommended Immunizations including but not limited to Influenza, COVID,Tetanus,TDAP, Pneumococcal,RSV and Shingles Additional Orders - Directives - Recommendations General surgical consult for rectal bleeding thought to be secondary to rectal bleeding Immunizations and Vaccines 1. 2023- INFLUENZA 2. Tetanus or TD Recommended 3. Covid or Booster Recommended Recommended Vaccine and Immunizations Discussed With Patient! Follow Up: 6 Months Approximate Date: 06/08/2025 Portions of record are template driven. When necessary additional context will be provided. Additionally some portions have been created with voice recognition software. Occasional wrong-word or s ound-a-like substitutions may have occurred due to the inherent limitations of voice recognition software. Read the chart carefully and recognize, using context, where substitutions may have occurred. Created: Radha Clemons M.D. 12.10.2024 02:07 PM [email or web address] Not available 12/10/2024 15:07:26 Reason for Referral None Reported. Results Created Date Observation Date Name Description Value Unit Range Abnormal Flag Note LastModifiedBy Organization Detail LastModifiedTime 08/29/19 24 08/29/2023 CBC/C OMPLE TE BLD COUNT W/DIF F white blood cells 5.1 x10'3 /uL 4.2-10 .8 Not Available [facility] (Lab) [address] [place], [address], 08/29/2023 13:52:51 08/29/19 24 08/29/2023 CBC/C OMPLE TE BLD COUNT W/DIF F red blood cells 4.55 x10'6 /uL 4.10-5 .80 Not Available [facility] (Lab) [address] [place], [address], 08/29/2023 13:52:51 08/29/19 24 08/29/2023 CBC/C OMPLE TE BLD COUNT W/DIF F hemoglobin 14.0 g/dL 13.2-1 7.0 Not Available [facility] (Lab) [address] [place], [address], 08/29/2023 13:52:51 08/29/19 24 08/29/2023 CBC/C OMPLE TE BLD COUNT W/DIF F hematocrit 40.4 % 39.3-5 0.0 Not Available [facility] (Lab) [address] [place], [address], 08/29/2023 13:52:51 08/29/19 24 08/29/2023 CBC/C OMPLE TE BLD COUNT W/DIF F mean red cell volume 88.8 fL 80.0-9 7.0 Not Available [facility] (Lab) [address] [place], [address], 08/29/2023 13:52:51 08/29/19 24 08/29/2023 CBC/C OMPLE TE BLD COUNT W/DIF F mean red cell hemoglobin 30.8 pg 27.0-3 3.0 Not Available [facility] (Lab) [address] [facility] [place], [address], 08/29/2023 13:52:51 08/29/19 24 08/29/2023 CBC/C OMPLE TE BLD COUNT W/DIF F mean RBC HGB concentratio n 34.7 g/dL 31.0-3 6.0 Not Available [facility] (Lab) [address] [place], [address], 08/29/2023 13:52:51 08/29/19 24 08/29/2023 CBC/C OMPLE TE BLD COUNT W/DIF F red cell distribution width 13.2 % 11.8-1 5.5 Not Available [facility] (Lab) [address] [place], [address], 08/29/2023 13:52:51 08/29/19 24 08/29/2023 CBC/C OMPLE TE BLD COUNT W/DIF F platelets 235 x10'3 /uL 150-40 0 Not Available [facility] (Lab) [address] [place], [address], 08/29/2023 13:52:51 08/29/19 24 08/29/2023 CBC/C OMPLE TE BLD COUNT W/DIF F mean platelet volume 11.2 fL 9.0-12 .4 Not Available [facility] (Lab) [address] [place], [address], 08/29/2023 13:52:51 08/29/19 24 08/29/2023 CBC/C OMPLE TE BLD COUNT W/DIF F neutrophils 47.5 % 39.0-7 2.0 Not Available [facility] (Lab) [address] [place], [address], 08/29/2023 13:52:51 08/29/19 24 08/29/2023 CBC/C OMPLE TE BLD COUNT W/DIF F lymphocytes 36.0 % 16.0-4 7.0 Not Available [facility] (Lab) [address] [place], [address], 08/29/2023 13:52:51 08/29/19 24 08/29/2023 CBC/C OMPLE TE BLD COUNT W/DIF F monocytes 9.2 % 5.0-12 .0 Not Available [facility] (Lab) [address] [place], [address], 08/29/2023 13:52:51 08/29/19 24 08/29/2023 CBC/C OMPLE TE BLD COUNT W/DIF F eosinophils 6.1 % 1.0-7. 0 Not Available [facility] (Lab) [address] [place], [address], 08/29/2023 13:52:51 08/29/19 24 08/29/2023 CBC/C OMPLE TE BLD COUNT W/DIF F basophils 0.8 % 0.0-2. 0 Not Available [facility] (Lab) [address] [place], [address], 08/29/2023 13:52:51 08/29/19 24 08/29/2023 CBC/C OMPLE TE BLD COUNT W/DIF F immature granulocytes 0.4 % 0.00-0 .50 Not Available [facility] (Lab) [address] [place], [address], 08/29/2023 13:52:51 08/29/19 24 08/29/2023 CBC/C OMPLE TE BLD COUNT W/DIF F neutrophils, absolute count 2.43 x10'3 /uL 1.5-8. 0 Not Available [facility] (Lab) [address] [place], [address], 08/29/2023 13:52:51 08/29/19 24 08/29/2023 CBC/C OMPLE TE BLD COUNT W/DIF F lymphocytes, absolute count 1.84 x10'3 /uL 1.07-3 .43 Not Available [facility] (Lab) [address] [place], [address], 08/29/2023 13:52:51 08/29/19 24 08/29/2023 CBC/C OMPLE TE BLD COUNT W/DIF F monocytes, absolute count 0.47 x10'3 /uL 0.29-0 .99 Not Available [facility] (Lab) [address] [place], [address], 08/29/2023 13:52:51 08/29/1908/29/2023 CBC/C OMPLE TE BLD COUNT W/DIF F eosinophils, absolute count 0.31 x10'3 /uL 0.02-0 .53 Not Available [facility] (Lab) [address] [place], [address], 08/29/2023 13:52:51 08/29/19 24 08/29/2023 CBC/C OMPLE TE BLD COUNT W/DIF F basophils, absolute count 0.04 x10'3 /uL 0.01-0 .08 Not Available [facility] (Lab) [address] [place], [address], 08/29/2023 13:52:51 08/29/1908/29/2023 CBC/C OMPLE TE BLD COUNT W/DIF F immature granulocytes ,absolute 0.02 x10'3 /uL 0.00-0 .05 Not Available [facility] (Lab) [address] [place], [address], 08/29/2023 13:52:51 08/29/1908/29/2023 CBC/C OMPLE TE BLD COUNT W/DIF F nucleated red blood cells 0.0 % -0 Not Available [facility] (Lab) [address] [place], [address], 08/29/2023 13:52:51 08/29/19 24 08/29/2023 CBC/C OMPLE TE BLD COUNT W/DIF F NRBC# 0.00 x10'3 /uL Not Available [facility] (Lab) [address] [place], [address], 08/29/2023 13:52:51 08/29/19 24 08/29/2023 MAGNE SIUM magnesium 1.8 mg/dL 1.6-2. 3 Not Available [facility] (Lab) [address] [place], [address], 08/29/2023 14:04:32 08/29/19 24 08/29/2023 LIPID PANEL cholesterol 195 mg/dL 140-19 9 NIH KENAN NSUS RECOM MENDA TION FOR [place] STERO L: ADULT CHILD LOW RISK: <200 <170 BORDE RLINE : <200- 239 ----- HIGH RISK: >240 >200 Not Available [facility] (Lab) [address] [place], [address], 08/29/2023 14:04:37 08/29/19 24 08/29/2023 LIPID PANEL triglyceride s 225 mg/dL 0-150 high NIH KENAN NSUS REPOR T RECOM MENDA TION FOR TRIGL YCERI BRYAN: ADULT CHILD LOW RISK: <150 ----- BODER LINE: 150-1 99 ----- HIGH RISK: >200 ----- Not Available [facility] (Lab) [address] [place], [address], 08/29/2023 14:04:37 08/29/19 24 08/29/2023 LIPID PANEL HDL cholesterol 28 mg/dL 40- low Not Available [facility] (Lab) [address] [place], [address], 08/29/2023 14:04:37 08/29/19 24 08/29/2023 LIPID PANEL [...] WILL NOT BE REPOR HIRO. Not Available [facility] (Lab) [address] [place], [address], 08/29/2023 14:04:37 08/29/19 24 08/29/2023 COMPR EHENS MIMI METAB OLIC PANEL sodium 140 mmol/ L 137-14 5 Not Available [facility] (Lab) [address] [place], [address], 08/29/2023 14:04:41 08/29/19 24 08/29/2023 COMPR EHENS MIMI METAB OLIC PANEL potassium 4.3 mmol/ L 3.5-5. 1 Not Available [facility] (Lab) [address] [place], [address], 08/29/2023 14:04:41 08/29/19 24 08/29/2023 COMPR EHENS MIMI METAB OLIC PANEL chloride 103 mmol/ L 98-107 Not Available [facility] (Lab) [address] [place], [address], 08/29/2023 14:04:41 08/29/19 24 08/29/2023 COMPR EHENS MIMI METAB OLIC PANEL carbon dioxide 28 mmol/ L 22-30 Not Available [facility] (Lab) [address] [place], [address], 08/29/2023 14:04:41 08/29/19 24 08/29/2023 COMPR EHENS MIMI METAB OLIC PANEL anion gap 13.3 mmol/ L 14-22 low Not Available [facility] (Lab) [address] [place], [address], 08/29/2023 14:04:41 08/29/19 24 08/29/2023 COMPR EHENS MIMI METAB OLIC PANEL glucose 94 mg/dL 70-99 Not Available [facility] (Lab) [address] [place], [address], 08/29/2023 14:04:41 08/29/19 24 08/29/2023 COMPR EHENS MIMI METAB OLIC PANEL BUN 10 mg/dL 8-19 Not Available [facility] (Lab) [address] [place], [address], 08/29/2023 14:04:41 08/29/19 24 08/29/2023 COMPR EHENS MIMI METAB OLIC PANEL creatinine 0.73 mg/dL 0.66-1 .25 Not Available [facility] (Lab) [address] [place], [address], 08/29/2023 14:04:41 08/29/19 24 08/29/2023 COMPR EHENS MIMI METAB OLIC PANEL GFR >60 Refer ence Range : [place] ge GFR Healt hy Adult : >60 [...] calcu lator is avail able on the [facility] websi te: https :[email or web address] [email or web address] [email or web address]/grace ofess ional s/kdo qi/gf r_cal culat or Not Available [facility] (Lab) [address] [place], [address], 08/29/2023 14:04:41 08/29/19 24 08/29/2023 COMPR EHENS MIMI METAB OLIC PANEL alkaline phosphatase 87 U/L 38-126 Not Available [facility] (Lab) [address] [place], [address], 08/29/2023 14:04:41 08/29/19 24 08/29/2023 COMPR EHENS MIMI METAB OLIC PANEL alanine aminotransfe rase 28 U/L 0-50 Not Available [facility] (Lab) [address] [place], [address], 08/29/2023 14:04:41 08/29/19 24 08/29/2023 COMPR EHENS MIMI METAB OLIC PANEL aspartate aminotransfe rase 29 U/L 15-46 Not Available [facility] (Lab) [address] [place], [address], 08/29/2023 14:04:41 08/29/19 24 08/29/2023 COMPR EHENS MIMI METAB OLIC PANEL bilirubin, total 0.60 mg/dL 0.20-1 .30 Not Available [facility] (Lab) [address] [place], [address], 08/29/2023 14:04:41 08/29/19 24 08/29/2023 COMPR EHENS MIMI METAB OLIC PANEL calcium 9.1 mg/dL 8.4-10 .2 Not Available [facility] (Lab) [address] [place], [address], 08/29/2023 14:04:41 08/29/19 24 08/29/2023 COMPR EHENS MIMI METAB OLIC PANEL total protein 7.2 g/dL 6.3-8. 2 Not Available [facility] (Lab) [address] [place], [address], 08/29/2023 14:04:41 08/29/19 24 08/29/2023 COMPR EHENS MIMI METAB OLIC PANEL albumin 4.9 g/dL 3.4-5. 0 Not Available [facility] (Lab) [address] [place], [address], 08/29/2023 14:04:41 08/29/19 24 08/29/2023 COMPR EHENS MIMI METAB OLIC PANEL globulin 2.3 g/dL 2.6-4. 2 low Not Available [facility] (Lab) [address] [place], [address], 08/29/2023 14:04:41 08/29/19 24 08/29/2023 COMPR EHENS MIMI METAB OLIC PANEL A/G ratio 2.1 ratio 1.0-2. 0 high Not Available [facility] (Lab) [address] [place], [address], 08/29/2023 14:04:41 08/29/19 24 08/29/2023 T4 FREE free T4 0.91 NG/dL 0.78-2 .19 Not Available [facility] (Lab) [address] [place], [address], 08/29/2023 14:29:20 08/29/19 24 08/29/2023 TSH thyroid-stim ulating hormone 1.150 uIU/m L 0.465- 4.680 Not Available [facility] (Lab) [address] [place], [address], 08/29/2023 14:34:23 08/29/19 24 08/30/2023 VITAM IN B12 (IAM JUDITH ) vb12 843 pg/mL 239-93 1 Not Available [facility] (Lab) [address] [place], [address], 08/30/2023 02:59:30 08/29/19 24 09/04/2023 TESTO STERO NE, FREE+ TOTAL LC/MS testosterone , total, lc/MS 304.9 NG/dL 264.0- 916.0 This [facility] LC/MS -MS metho d is curre ntly certi fied by the [facility] Hormo ne Stand ardiz ation Progr am (HoSt ). Adult male refer ence inter yevgeniy is based on a popul ation of healt hy nonob lalito males (BMI <30) betwe en 19 and 39 years old. Declan cyr et.al . JCEM 2017, 102;1 161-1 173. PMID: 90311 103. Not Available [facility] (Lab) [address] [place], [address], 09/04/2023 11:14:02 08/29/19 24 09/04/2023 TESTO STERO NE, FREE+ TOTAL LC/MS testosterone , free 8.14 NG/dL 5.00-2 1.00 Not Available [facility] (Lab) [address] [place], [address], 09/04/2023 11:14:02 08/29/19 24 09/04/2023 TESTO STERO NE, FREE+ TOTAL LC/MS % free testosterone 2.67 % 1.50-4 .20 Perfo rmed at: [facility] [place] [address] [facility] , [place] [address] Lab Direc tor: Berenice daniel MD, Phone : [phone] Not Available [facility] (Lab) [address] [place], [address], 09/04/2023 11:14:02 09/04/19 24 09/04/2023 C REACT MIMI PROTE IN,UL TRA SENS C-reactive protein 0.23 mg/dL 0.0-0. 5 Not Available [facility] (Lab) [address] [place], [address], 09/04/2023 21:03:23 09/04/19 24 09/09/2023 LIPOP ROTEI [...] s ethni citie s. Perfo rmed at: [address], [place] [address] Lab Direc tor: Roly zaldivar PhD, Phone : [phone] Not Available [facility] (Lab) [address] [place], [address], 09/09/2023 15:10:12 12/11/1912/10/2024 CBC/C OMPLE TE BLD COUNT W/DIF F white blood cells 7.4 x10'3 /uL 4.2-10 .8 Not Available [facility] (Lab) [address] [place], [address], 12/10/2024 16:43:14 12/11/19 25 12/10/2024 CBC/C OMPLE TE BLD COUNT W/DIF F red blood cells 4.51 x10'6 /uL 4.10-5 .80 Not Available [facility] (Lab) [address] [place], [address], 12/10/2024 16:43:14 12/11/19 25 12/10/2024 CBC/C OMPLE TE BLD COUNT W/DIF F hemoglobin 13.0 g/dL 13.2-1 7.0 low Not Available [facility] (Lab) [address] [place], [address], 12/10/2024 16:43:14 12/11/1912/10/2024 CBC/C OMPLE TE BLD COUNT W/DIF F hematocrit 39.9 % 39.3-5 0.0 Not Available [facility] (Lab) [address] [place], [address], 12/10/2024 16:43:14 12/11/1912/10/2024 CBC/C OMPLE TE BLD COUNT W/DIF F mean red cell volume 88.5 fL 80.0-9 7.0 Not Available [facility] (Lab) [address] [place], [address], 12/10/2024 16:43:14 12/11/1912/10/2024 CBC/C OMPLE TE BLD COUNT W/DIF F mean red cell hemoglobin 28.8 pg 27.0-3 3.0 Not Available [facility] (Lab) [address] [place], [address], 12/10/2024 16:43:14 12/11/1912/10/2024 CBC/C OMPLE TE BLD COUNT W/DIF F mean RBC HGB concentratio n 32.6 g/dL 31.0-3 6.0 Not Available [facility] (Lab) [address] [place], [address], 12/10/2024 16:43:14 12/11/1912/10/2024 CBC/C OMPLE TE BLD COUNT W/DIF F red cell distribution width 14.3 % 11.8-1 5.5 Not Available [facility] (Lab) [address] [place], [address], 12/10/2024 16:43:14 12/11/1912/10/2024 CBC/C OMPLE TE BLD COUNT W/DIF F platelets 289 x10'3 /uL 150-40 0 Not Available [facility] (Lab) [address] [place], [address], 12/10/2024 16:43:14 12/11/1912/10/2024 CBC/C OMPLE TE BLD COUNT W/DIF F mean platelet volume 10.0 fL 9.0-12 .4 Not Available [facility] (Lab) [address] [place], [address], 12/10/2024 16:43:14 12/11/1912/10/2024 CBC/C OMPLE TE BLD COUNT W/DIF F neutrophils 63.6 % 39.0-7 2.0 Not Available [facility] (Lab) [address] [place], [address], 12/10/2024 16:43:14 12/11/1912/10/2024 CBC/C OMPLE TE BLD COUNT W/DIF F lymphocytes 26.5 % 16.0-4 7.0 Not Available [facility] (Lab) [address] [place], [address], 12/10/2024 16:43:14 12/11/1912/10/2024 CBC/C OMPLE TE BLD COUNT W/DIF F monocytes 7.2 % 5.0-12 .0 Not Available [facility] (Lab) [address] [place], [address], 12/10/2024 16:43:14 12/11/1912/10/2024 CBC/C OMPLE TE BLD COUNT W/DIF F eosinophils 2.0 % 1.0-7. 0 Not Available [facility] (Lab) [address] [place], [address], 12/10/2024 16:43:14 12/11/1912/10/2024 CBC/C OMPLE TE BLD COUNT W/DIF F basophils 0.4 % 0.0-2. 0 Not Available [facility] (Lab) [address] [place], [address], 12/10/2024 16:43:14 12/11/1912/10/2024 CBC/C OMPLE TE BLD COUNT W/DIF F immature granulocytes 0.3 % 0.00-0 .50 Not Available [facility] (Lab) [address] [place], [address], 12/10/2024 16:43:14 12/11/1912/10/2024 CBC/C OMPLE TE BLD COUNT W/DIF F neutrophils, absolute count 4.71 x10'3 /uL 1.5-8. 0 Not Available [facility] (Lab) [address] [place], [address], 12/10/2024 16:43:14 12/11/1912/10/2024 CBC/C OMPLE TE BLD COUNT W/DIF F lymphocytes, absolute count 1.96 x10'3 /uL 1.07-3 .43 Not Available [facility] (Lab) [address] [place], [address], 12/10/2024 16:43:14 12/11/1912/10/2024 CBC/C OMPLE TE BLD COUNT W/DIF F monocytes, absolute count 0.53 x10'3 /uL 0.29-0 .99 Not Available [facility] (Lab) [address] [place], [address], 12/10/2024 16:43:14 12/11/1912/10/2024 CBC/C OMPLE TE BLD COUNT W/DIF F eosinophils, absolute count 0.15 x10'3 /uL 0.02-0 .53 Not Available [facility] (Lab) [address] [place], [address], 12/10/2024 16:43:14 12/11/19 25 12/10/2024 CBC/C OMPLE TE BLD COUNT W/DIF F basophils, absolute count 0.03 x10'3 /uL 0.01-0 .08 Not Available [facility] (Lab) [address] [place], [address], 12/10/2024 16:43:14 12/11/1912/10/2024 CBC/C OMPLE TE BLD COUNT W/DIF F immature granulocytes ,absolute 0.02 x10'3 /uL 0.00-0 .05 Not Available [facility] (Lab) [address] [place], [address], 12/10/2024 16:43:14 12/11/1912/10/2024 CBC/C OMPLE TE BLD COUNT W/DIF F nucleated red blood cells 0.0 % -0 Not Available [facility] (Lab) [address] [place], [address], 12/10/2024 16:43:14 12/11/1912/10/2024 CBC/C OMPLE TE BLD COUNT W/DIF F NRBC# 0.00 x10'3 /uL Not Available [facility] (Lab) [address] [place], [address], 12/10/2024 16:43:14 12/11/1912/10/2024 LIPID PANEL cholesterol 154 mg/dL 140-19 9 NIH KENAN NSUS RECOM MENDA TION FOR [place] STERO L: ADULT CHILD LOW RISK: <200 <170 BORDE RLINE : <200- 239 ----- HIGH RISK: >240 >200 Not Available [facility] (Lab) [address] [place], [address], 12/10/2024 16:47:46 12/11/1912/10/2024 LIPID PANEL triglyceride s 142 mg/dL 0-150 [facility] KENAN NSUS REPOR T RECOM MENDA TION FOR TRIGL YCERI BRYAN: ADULT CHILD LOW RISK: <150 ----- BODER LINE: 150-1 99 ----- HIGH RISK: >200 ----- Not Available [facility] (Lab) [address] [place], [address], 12/10/2024 16:47:46 12/11/1912/10/2024 LIPID PANEL HDL cholesterol 29 mg/dL 40- low Not Available [facility] (Lab) [address] [place], [address], 12/10/2024 16:47:46 12/11/1912/10/2024 LIPID PANEL LDL cholesterol, calculated 97 mg/dL 0-130 NIH KENAN NSUS REPOR T [...] WILL NOT BE REPOR HIRO. Not Available [facility] (Lab) [address] [place], [address], 12/10/2024 16:47:46 12/11/1912/10/2024 COMPR EHENS MIMI METAB OLIC PANEL sodium 141 mmol/ L 137-14 5 Not Available [facility] (Lab) [address] [place], [address], 12/10/2024 16:47:56 12/11/1912/10/2024 COMPR EHENS MIMI METAB OLIC PANEL potassium 4.4 mmol/ L 3.5-5. 1 Not Available [facility] (Lab) [address] [place], [address], 12/10/2024 16:47:56 12/11/1912/10/2024 COMPR EHENS MIMI METAB OLIC PANEL chloride 108 mmol/ L 98-107 high Not Available [facility] (Lab) [address] [place], [address], 12/10/2024 16:47:56 12/11/1912/10/2024 COMPR EHENS MIMI METAB OLIC PANEL carbon dioxide 25 mmol/ L 22-30 Not Available [facility] (Lab) [address] [place], [address], 12/10/2024 16:47:56 12/11/1912/10/2024 COMPR EHENS MIMI METAB OLIC PANEL anion gap 12.4 mmol/ L 14-22 low Not Available [facility] (Lab) [address] [place], [address], 12/10/2024 16:47:56 12/11/1912/10/2024 COMPR EHENS MIMI METAB OLIC PANEL glucose 87 mg/dL 70-99 Not Available [facility] (Lab) [address] [place], [address], 12/10/2024 16:47:56 12/11/1912/10/2024 COMPR EHENS MIMI METAB OLIC PANEL BUN 9 mg/dL 8-19 Not Available [facility] (Lab) [address] [place], [address], 12/10/2024 16:47:56 12/11/1912/10/2024 COMPR EHENS MIMI METAB OLIC PANEL creatinine 0.85 mg/dL 0.66-1 .25 Not Available [facility] (Lab) [address] [place], [address], 12/10/2024 16:47:56 12/11/1912/10/2024 COMPR EHENS MIMI METAB OLIC PANEL GFR >60 Refer ence Range : [place] ge GFR Healt hy Adult : >60 [...] calcu lator is avail able on the [facility] websi te: [email or web address] :[email or web address] [email or web address] rg/pr ofess ional s/kdo qi/gf r_cal culat or Not Available [facility] (Lab) [address] [place], [address], 12/10/2024 16:47:56 12/11/1912/10/2024 COMPR EHENS MIMI METAB OLIC PANEL alkaline phosphatase 139 U/L 38-126 high Not Available [facility] (Lab) [address] [place], [address], 12/10/2024 16:47:56 12/11/1912/10/2024 COMPR EHENS MIMI METAB OLIC PANEL alanine aminotransfe rase 32 U/L 0-50 Not Available [facility] (Lab) [address] [place], [address], 12/10/2024 16:47:56 12/11/19 25 12/10/2024 COMPR EHENS MIMI METAB OLIC PANEL aspartate aminotransfe rase 25 U/L 15-46 Not Available [facility] (Lab) [address] [place], [address], 12/10/2024 16:47:56 12/11/1912/10/2024 COMPR EHENS MIMI METAB OLIC PANEL bilirubin, total 0.70 mg/dL 0.20-1 .30 Not Available [facility] (Lab) [address] [place], [address], 12/10/2024 16:47:56 12/11/1912/10/2024 COMPR EHENS MIMI METAB OLIC PANEL calcium 9.6 mg/dL 8.4-10 .2 Not Available [facility] (Lab) [address] [place], [address], 12/10/2024 16:47:56 12/11/19 25 12/10/2024 COMPR EHENS MIMI METAB OLIC PANEL total protein 7.1 g/dL 6.3-8. 2 Not Available [facility] (Lab) [address] [place], [address], 12/10/2024 16:47:56 12/11/1912/10/2024 COMPR EHENS MIMI METAB OLIC PANEL albumin 4.6 g/dL 3.4-5. 0 Not Available [facility] (Lab) [address] [place], [address], 12/10/2024 16:47:56 12/11/1912/10/2024 COMPR EHENS MIMI METAB OLIC PANEL globulin 2.5 g/dL 2.6-4. 2 low Not Available [facility] (Lab) [address] [place], [address], 12/10/2024 16:47:56 12/11/1912/10/2024 COMPR EHENS MIMI METAB OLIC PANEL A/G ratio 1.8 ratio 1.0-2. 0 Not Available [facility] (Lab) [address] [place], [address], 12/10/2024 16:47:56 12/11/19 25 12/10/2024 MAGNE SIUM magnesium 1.8 mg/dL 1.6-2. 3 Not Available [facility] (Lab) [address] [facility], [place], [address], 12/10/2024 16:48:01 12/11/19 25 12/10/2024 VITAM IN B12 (IAM JUDITH ) vb12 760 pg/mL 239-93 1 Not Available [facility] (Lab) [address] [facility], [place], [address], 12/10/2024 17:40:26 06/23/19 25 06/22/2024 XR, chest , 2 view No observ ation record ed. [address], [place], [address], 06/22/2024 17:43:22 07/22/19 25 07/21/2024 XR, knee, 3 view [facility] [address] [place], [place] [id number] Patien t Name: CALVIN CASTREJON Access ion #: [id number] Sex: M : 1985 4 Locati on: RAD Attend ing Physic darlene: FELIPE CLEMONS CE Orderi Physic darlene: FELIPE CLEMONS CE Exam Date: 025 1:54 PM Exam Name: XR KNEE RT 3V Admitt ing Diagno sis(es ): RADIOL OGY REPORT - FINAL EXAM: XR KNEE RT 3V HISTOR Y: pain 38-yea r-old male with right knee pain, no known injury . COMPAR AYANNA: None availa ble. TECHNI QUE: 3 views of the right knee were perfor med. FINDIN GS: No acute fractu re is identi fied about the right knee. No signif icant joint space narrow ing. Probab le small to modera te joint effusi on. IMPRES NOA: 1. No fractu re or joint space narrow ing of the right knee. 2. Probab le small to modera te right knee effusi on. Page 1 of 2 [facility] Name: CALVIN CASTREJON Access ion #: [id number] Sex: M : 1985 4 Exam Date: 1:54 PM Exam Name: XR KNEE RT 3V Admitt ing Diagno sis(es ): Create d and electr onical ly signed by: Cheo joy MD Signed Date: 2:26 PM (CT) Dictat ed by: Cheo joy MD DD: 2:26 PM (CT) DT: 2:26 PM (CT) Page 2 of [address] (Imaging) [address] [place], [address], 07/21/2024 17:41:07 Result Notes Documentation Provider Name and Address Organization Details Recorded Time Xr, Knee, 3 View : [facility] [address] [place] [address] Patient Name: CALVIN CASTREJON Sex: M : 1985 Location: [facility] Attending Physician: RADHA CLEMONS Ordering Physician: RADHA CLEMONS Exam Date: 07/21/2024 1:54 PM Exam Name: XR KNEE RT 3V Admitting Diagnosis(es): RADIOLOGY REPORT - FINAL EXAM: XR KNEE RT 3V HISTORY: pain 38-year-old male with right knee pain, no known injury. COMPARISON: None available. TECHNIQUE: 3 views of the right knee were performed. FINDINGS: No acute fracture is identified about the right knee. No significant joint space narrowing. Probable small to moderate joint effusion. IMPRESSION: 1. No fracture or joint space narrowing of the right knee. 2. Probable small to moderate right knee effusion. Page 1 of 2 [facility] Patient Name: CALVIN CASTREJON [facility]: [facility] 1985 [id number] Exam Date: 07/21/2024 1:54 PM Exam Name: XR KNEE RT 3V Admitting Diagnosis(es): Created and electronically signed by: Cheo Tellez MD Signed Date: 07/21/2024 2:26 PM (CT) Dictated by: Cheo Tellez MD (CT) (CT) Page 2 of 2 Radha Clemons MD [address], [place], [address], [employer] 07/21/2024 17:41:07 Problems Name Problem SNOMED Code Status Onset Date Resolution Date Notes Provider Name and Address Organization Details Recorded Time Diplopia 48174530 Active Not Available [employer] 3 15:16:38 Dysphagia 17474388 Active Not Available [employer] 3 15:16:38 Testicula r hypofunct ion 159002998 Active 2018 Not Available [employer] 3 15:16:38 Klinefelt er's syndrome, XXYY 806466607 Active 2018 Radha Clemons MD [address], [address], [place], [address] , [employer] 5 14:59:18 Klinefelt er's syndrome, XXY 160394565 Completed 201810/31/2018 Not Available [facility] 3 15:16:38 Eosinophi lic esophagit is 552079142 Active 2023 Radha Clemons MD [address], [place], [address] , [employer] 4 08:11:19 Celluliti s of right foot 29176144372 972877 Active 2023 Radha Clemons MD [address], [place], [address] , [employer] 4 12:48:31 Fatigue 93188495 Active 2023 Radha Clemons MD [address], [place], [address] , [facility] 4 14:38:32 Hyperlipi demia 53095016 Active 2023 DUANE Haider, [place] [facility] 4 11:40:27 Hyperchol esterolem ia 00755673 Active 2023 Radha Clemons MD [address], [place], [address] , [facility] 5 14:59:18 Obesity 792494716 Active 2023 Radha Clemons MD [address], [place], [address] , [facility] 4 14:39:35 Asthma 863202516 Active 2024 Radha Clemons MD [address], [place], [address] , [facility] 5 11:39:20 Pain of right knee joint 12403757944 4100 Active 2024 Radha Clemons MD [address], [place], [address] , [facility] 5 14:29:38 Gastroeso phageal reflux disease without esophagit is 845894571 Active 2024 Kim Cottrell CMA null, [place] [facility] 5 15:49:59 Disorder of uvula of palate 459569960 Active 2024 Radha Clemons MD [address], [place], [address] , [facility] 5 12:39:09 Gastroint estinal hemorrhag e 65081561 Active 2024 Radha Clemons MD [address], [place], [address] , [facility] 5 14:59:14 Obese class I 02560432213 4107 Active 2024 Radha Clemons MD [address] [facility] [address], [place], [address] , [facility] [employer] 5 15:00:39 Rectal hemorrhag e 48802612 Active 2024 Vaishali Taylor ca, [facility] [employer] 5 12:07:45 Problem Notes None recorded. Medical Equipment None Reported. Allergies Allergen ID Allergen Name Allergen Category Reaction Reaction Severity Criticality Documentation Date Start Date Code Code System Note Provider Name and Address Organization Details Recorded Time 94380 Product containin g penicilli n (product) medicatio n rash Not available Not available 05/02/2022 21280 8001 SNOMED Not Available [facility] 3 15:20:00 Medications Name Sig Start Date Stop Date Status Note LastModified by Organization Details LastModified Time atorvastati n 20 mg tablet TAKE 1 TABLET BY MOUTH ONCE DAILY active Not Available Not Available No t Available clindamycin HCl 300 mg capsule TAKE 1 CAPSULE BY MOUTH EVERY 6 HOURS 07/22 completed Not Available Not Available Not Available hydrocodone 5 mg-acetamin ophen 325 mg tablet TAKE 1 TABLET BY MOUTH EVERY 6 HOURS NEEDED FOR PAIN active Not Available Not Available No t Available Zithromax 250 mg tablet TAKE 2 TABLETS (500 [...] sulfate HFA 90 mcg/actuati on aerosol inhaler INHALE 2 PUFFS BY MOUTH 4 TIMES DAILY active Not Available Not Available No t Available diazepam 5 mg tablet TAKE 1 TABLET [...] completed Not Available Not Available Not Available Methylpred DP 4 mg tablets in a dose pack As Directed 2024 active Not Available Not Available Not Avai lable Vitals Date Recorded Body height Body mass index (BMI) Body weight Heart rate Body temperature Oxygen saturation Oxygen saturation in Arterial blood by Pulse oximetry Systolic And Diastolic Provider Name and Address Organization Details Last Updated DateTime 5 180.34 cm 31 kg/m2 179567. 51 g 70 /min 97 [degF] 98 % 98 % 118/60 mm[Hg] Vaishali Taylor [facility] 5 14:26:44 Date Recorded Body height Body mass index (BMI) Body weight Heart rate Body temperature Oxygen saturation Oxygen saturation in Arterial blood by Pulse oximetry Systolic And Diastolic Provider Name and Address Organization Details Last Updated DateTime 4 180.34 cm 28.3 kg/m2 28899.2 5 g 69 /min 98 [degF] 98 % 98 % 122/70 mm[Hg] CHERISE Licea [facility] 4 14:24:12 Date Recorded Body height Body mass index (BMI) Body weight Body temperature Heart rate Respiratory rate Oxygen saturation Oxygen saturation in Arterial blood by Pulse oximetry Systolic And Diastolic Provider Name and Address Organization Details Last Updated DateTime 5 180.34 cm 30.7 kg/m2 49905.3 2 g 97.3 [degF] 72 /min 16 /min 98 % 98 % 108/62 mm[Hg] Fbai Dinh RN [facility] 5 14:43:14 Date Recorded Body height Body mass index (BMI) Body weight Heart rate Body temperature Oxygen saturation Oxygen saturation in Arterial blood by Pulse oximetry Systolic And Diastolic Provider Name and Address Organization Details Last Updated DateTime 4 180.34 cm 30.7 kg/m2 95290.3 2 g 86 /min 97 [degF] 98 % 98 % 122/70 mm[Hg] CHERISE Licea [facility] [employer] [facility] 4 14:24:33 Date Recorded Body height Body mass index (BMI) Body weight Body temperature Heart rate Oxygen saturation Oxygen saturation in Arterial blood by Pulse oximetry Systolic And Diastolic Provider Name and Address Organization Details Last Updated DateTime 3 180.34 cm 24.1 kg/m2 52685.4 8 g 98.2 [degF] 88 /min 99 % 99 % 104/68 mm[Hg] CHERISE Licea [place] [facility] 3 12:00:57 Social History Question Answer Notes LastModified by Organizat ion Details LastModified Time In The 14 Days Before Symptom Onset, Have You Had Close Contact With A Laboratory-confirme d COVID-19 While That Case Was Ill? No [id number] Information not available 05/02/2022 In The 14 Days Before Symptom Onset, Have You Had Close Contact With A Person Who Is Under Investigation For COVID-19 While That Person Was Ill? No [id number] Information not available 05/02/2022 Have You Recently Traveled Abroad? No [id number] Information not available 05/02/2022 Sex: Unknown Functional Status None recorded. Mental Status None recorded. Family History Nothing Reported Notes:Mother living 59 good health Father living 67 with ASHD and Cholesterol Two brothers both living one with psoriasis. Medical History Condition Response NERVE DISEASE N BLINDNESS N RHEUMATIC FEVER N KIDNEY STONES N BLADDER PROBLEMS N MRSA N OTHER # 1 N POLIO N LUNG DISEASE/DISORDER N HISTORY OF DRUG ABUSE N RADIATION / CHEMOTHERAPY N COPD N Other # 2 N BLOOD DISEASES N EAR OR HEARING PROBLEMS N MUMPS N SHINGLES N BOWEL PROBLEMS N DEPRESSION (INCLUDING POST ) N FAILED BACK SYNDROME N STROKE/TIA N ULCERS N BENIGN PROSTATIC HYPERPLASIA N MEASLES N HYPOTENSION N MYOCARDIAL INFARCTION N OBESITY N GERD/NAUSEA N ANEURYSM N URINARY/BLADDER/KIDNEY PROBLEMS N CORONARY ARTERY DISEASE (CAD) N Do you have Advance directive? N ADDICTION CONCERNS N Impotence N ENDOMETRIOSIS N USE OF BLOOD THINNERS N SKIN PROBLEMS N GASTROINTESTINAL DISORDER N PERIPHERAL VASCULAR DISEASE N MUSCLE,JOINT OR BONE PROBLEMS N GASTROINTESTINAL BLEEDING N BLOOD CLOTS N ASTHMA N CATARACTS N Abdominal Pain N ERECTILE DYSFUNCTION N ARTERIAL INSUFFICIENCY N VARICOSITIES N GI PROBLEMS N Low Testosterone N INFERTILITY N AIDS/HIV N CHEMOTHERAPY / RADIATION N LIVER DISEASE N MALE HYPOGONADISM N HYPERTENSION N Deficiency N TOURETTE'S N ANXIETY DISORDER N BLOOD TRANSFUSION N ANEMIA/BLOOD DISORDER N CHRONIC EAR INFECTIONS N TUBERCULOSIS N GLAUCOMA N FOOT PROBLEM N DIVERTICULITIS N SLEEP APNEA N CHICKENPOX N ALLERGIES/HAYFEVER N BACK INJECTIONS N INFECTIOUS DISEASE N PROSTATE N HEART ARRHYTHMIA N ESRD N INSOMNIA N HIGH CHOLESTEROL / HYPERLIPIDEMIA N EYE PROBLEMS N HYPERTHYROIDISM N PVD N EDEMA N CHRONIC PAIN SYNDROME N HYPOTHYROIDISM N CONSTIPATION N CAROTID BLOCKAGE N BACK / NECK PROBLEMS N HAVE YOU BEEN HOSPITALIZED OR SEEN IN [facility] IN THE PAST YEAR ? N ATHEROSCLEROSIS [...] N ALZHEIMER'S DISEASE N Brain Problems N DEMENTIA N HERPES N SEIZURES/EPILEPSY N HEADACHES/MIGRAINES N VASCULAR DISEASE N PACEMAKER N DIZZINESS N HEART DISEASE/HEART PROBLEMS N KIDNEY DISEASE N MULTIPLE SCLEROSIS N NEUROPSYCHOLOGICAL N CANCER: SPECIFY N CARDIAC ARRHYTHMIA N ATRIAL FIBRILLATION N Gall Stones N PULMONARY EMBOLISM N AUTOIMMUNE DISEASE N Immunizations Vaccine Type Date Status Note Provider [facility] e and Address Organization Details Recorded Time influenza, unspecified formulation 4 completed DUANE Haider, [facility] [employer] [facility] [employer] 04/17/2023 17:36:27 influenza nasal, unspecified formulation 4 completed DUANE Haider, [facility] [employer] [facility] 03/26/2024 10:09:30 Influenza, split virus, quadrivalent, preservative 4 completed Not Available [facility] 12/10/2024 14:14:55 Influenza, split virus, quadrivalent, PF 7 completed Not Available [facility] 12/10/2024 14:14:55 Influenza, split virus, quadrivalent, PF 8 completed Not Available [facility] 12/10/2024 14:14:55 Influenza, split virus, quadrivalent, PF 9 completed Not Available [facility] 12/10/2024 14:14:55 Influenza, recombinant, quadrivalent, PF 0 completed Not Available [facility] 12/10/2024 14:14:55 COVID-19, mRNA, LNP-S, PF, 30 mcg/0.3 mL dose 1 completed Not Available [facility] 05/02/2022 15:19:52 COVID-19, mRNA, LNP-S, PF, 30 mcg/0.3 mL dose 1 completed Not Available [facility] 05/02/2022 15:19:52 Influenza, split virus, trivalent, preservative 4 completed Not Available [facility] 05/02/2022 15:19:52 Past Encounters Encounter ID Performer Location Encounter Start Date Encounter Closed Date Diagnosis/Indication Diagnosis SNOMED-CT Code Diagnosis ICD10 Code Diagnosis IMO Codes Diagnosis Note [id number] Radha Clemons MD [facility] Internal [facility] [place] [address] [place] [address] y , [place] [address] 06/13/2021 00:00:00 06/13/2021 15:22:38 [id number] Radha Clemons MD [facility] [place] [address] [place] [address] y , [place] [address] 12/12/2021 00:00:00 12/12/2021 15:17:09 [id number] Radha Clemons MD [facility] Internal [facility] [place] [address] [place] [address] [place] [address] 07/24/2022 10:43:15 07/24/2022 11:28:14 Klinefelter's syndrome, XXYY 660938997 Q98.1 Testicular hypofunction 099645810 E29.1 Screening for cardiovascular system disease 270856866 Z13.6 [id number] Radha Clemons MD [facility] Internal [facility] [place] [address] [place] [address] [place] [address] 01/22/2023 11:48:00 01/22/2023 12:38:53 Dysphagia 82973836 R13.10 Testicular hypofunction 968143352 E29.1 Klinefelte r's syndrome, XXYY 880636803 Q98.1 [id number] Radha Clemons MD [facility] Internal [place] [address] [place] [address] y , [place] [address] 07/23/2023 14:17:41 07/23/2023 14:43:57 Klinefelter's syndrome, XXYY 280364924 Q98.1 Eosinophil ic esophagitis 382337313 K20.0 Testicular hypofunction 564785737 E29.1 Screening for cardiovascular system disease 693514900 Z13.6 Fatigue 02926983 R53.83 [id number] Radha Clemons MD [facility] [address] [facility] [address] [place] [address] 01/21/2024 14:17:59 01/21/2024 14:50:55 Eosinophilic esophagitis 487521556 K20.0 Hypercholesterolemia 136 07779 E78.00 Obesity 004545201 E66.9 Klinefelte r's syndrome, XXYY 673649243 Q98.1 [id number] Radha Clemons MD [facility] Internal [facility] [address] [address] 07/21/2024 14:16:37 07/21/2024 14:37:42 Pain of right knee joint 4130228320 63471 M25.561 [id number] Radha Clemons MD [facility] Internal [facility] [address] [address] 12/10/2024 14:14:19 12/10/2024 17:27:01 Hypercholesterolemia 22613147 E78.00 Gastroesop hageal reflux disease without esophagitis 629203646 K21.9 080496 Klinefelte r's syndrome, XXYY 529503952 Q98.1 History an d physical examination, annual for health maintenance 46398628 Z00.00 0863072 Gastrointe stinal hemorrhage 06513665 K62.5 81630 Obese class I 1976817689 65236 E66.811 61389000 Health Concerns Section Related Observation LastModified by Organization Detai ls LastModified Time None Recorded Concern Status LastModified by Organization Details LastModified Time None Recorded Advance Directives Directive None Recorded Payers Insurance Date Sequence Insurance Name Policy Number Policy Moody Covered Member ID Moody Member ID Guarantor Name 01/22/2023 1 UMR (PPO) [id number] Kiara Castrejon [id number] Calvin Castrejon 01/21/2024 1 [place] Calvin Castrejon [id number] Calvin Castrejon 12/10/2024 1 [employer] (MEDICARE REPLACEMENT/ ADVANTAGE - PPO) Calvin Castrejon [id number] Calvin Castrejon Notes Date Note Type Note Provider Name and Address Organization Details Recorded Time 01/23/20 23 text/htm l Patient Name: Calvin CastrejonDate Of Service: Saturday ( 01.22.2023 ): 1985 [...] in July which looked adequate.:ADRs List Reviewed 3Penicillin RashVaccination and Kbnlpsiikifo7821-22 InfluenzaSurgical HistoryOral SurgeryPreventative Testing Confirmed by Our Kdfweal6907/24/2022 ALBUMIN 4.7 G/DL NSocial HistoryDoes not smokeDrinks sociallyDisabled and not sexually activeFamily HistoryMother living 59 good healthFather living 67 with ASHD and CholesterolTwo brothers both living one with psoriasis. Radha Clemons MD [address] [facility] [address], [place], [address], [facility] [employer] 01/22/2023 12:33:03 07/23/19 24 text/htm l Patient Name: Calvin Mercer Of Service: Saturday [...] Adverse Drug Reactions ReviewedPenicillin Rash Vaccination and Tfqomvfqyjuz9809-92 Influenza Surgical Fpfannd5216-16 Oral Surgery Preventative Iiftiqh7203/13/2023 UPPER GNMJNVZBE83/23/2023 ALBUMIN 4.7 G/DL N Social HistoryDoes not smokeDrinks sociallyDisabled and not sexually active Family HistoryMother living 59 good healthFather living 67 with ASHD and CholesterolTwo brothers both living one with psoriasis. Radha Clemons MD [address] [facility] [facility] [address], [place], [address], [place] [facility] [employer] 07/23/2023 14:39:25 01/21/20 24 text/htm l Patient Name: Calvin Mercer Of Service: Saturday [...] offered to be evaluated and instructed by securities compliance examiner on weight loss diet. Active Medication ListPantoprazole 40 MG TABLET One DailyAtorvastatin Calcium 20 MG TABLET One Daily Adverse Drug Reactions ReviewedPenicillin Rash Vaccination and Immunization( ) 2023-03 INFLUENZA Surgical Jugdwli8243-38 Oral Surgery Preventative Testing( ) 08/29/2023 Albumin 4.9 G/DL( ) 03/13/2023 Upper Endoscopy 03/13/2050 Social HistoryDoes not smokeDrinks sociallyDisabled and not sexually active Family HistoryMother living 61 good healthFather living 70 with ASHD and CholesterolTwo brothers both living one with psoriasis. Radha Clemons MD [address] [facility] [address], [place], [address], [place] [facility] [employer] 01/21/2024 14:43:31 07/22/19 25 text/htm l Physical Examination This is a Obese Class I (According to BMI) 38 y/o male appearing in no distress Skin: Inspection of the skin demonstrates no suspicious skin or subcutaneous rashes, lesions, or ulcerations. Breasts some gynecomastia. Edema: none Head: Head is normal configuration with no new anatomical abnormalities. Eyes: External ocular muscles are intact. There is no conjunctival irritation or evidence of scleral icterus. Fundoscopy reveals no hemorrhages, exudates or other or retinal abnormalities. Visual dey to gross confrontation within normal limits .Funduscopy this somewhat limited because of the lighting conditions. ENT: Ears normal configuration with intact Tms. The visualized portion of the tympanic membranes appear to be normal with no redness - bulging - or other signs of inflammation. Hearing unchanged from previous examinations. Neck: The neck is supple with no nuchal rigidity. The carotid impulses are 2+ with normal upstrokes and no bruits or thrills. The trachea is midline with no deviation or tug. The thyroid is normal size and consistency with no masses, nodules or bruits. Lungs: Normal chest configuration. Normal chest mechanics during inspiration and expiration. Lungs are clear to auscultation and percussion. There no flaring of the costal margins. There is no dullness to percussion, egophony or other findings suggestive of either pleural fluid or consolidation. Heart: S1 and S2 normal duration and intensity. The PMI is not displaced. No murmurs , gallops, clicks, thrills or rubs. No left or right ventricular heave noted. Peripheral pulses are present bilaterally and unchanged from previous examinations. Abdomen: No abdominal distension. Good bowel sounds. No organomegaly or masses noted. No tenderness, guarding or rebound noted. No vascular pulsations or other masses. No hernias or other fascial defects are noted. No new wounds or scars from previous evaluations. Neurological: Symmetrical DTRs with no new focal muscle weakness or other neurological complaints. Cerebellar functions stable. Cognitive functions moderately impaired and not capable of caring for self fully. Gait is stable and unchanged. Musculoskeletal: General inspection of the musculoskeletal system reveals no change in range of motion in the major joints. No swelling, redness or signs of any acute inflammation. No synovial thickening.Examination of the right knee joint revealed some decreased range of motion. There is no crepitus noted. There is tenderness over the patellar tendon and its insertion into the tibia. Some mild surrounding inflammatory changes no redness or signs of what appears to be any type of septic arthritic condition. Immunological: No lymphadenopathy in the cervical, supraclavicular, axillary, Epitrochlear, inguinal or popliteal areas. Radha Clemons MD [address] [facility] [address], [place], [address], [facility] 07/21/2024 14:32:53 12/11/19 25 text/htm l Patient Name: Calvin Mercer Of Service: December ( 12.10.2024 ): 1985 Age: 39 There has been approximately a 2 lb weight loss since 07/21/2024. This represents approximately a .9% change in weight. Weight change attributable to lifestyle changes. Vital Signs:Blood Pressure: Sitting Rt. Arm 108/62Pulse: Sitting 72 /min and RegularRespiratory Rate: 16Height 71 in or 1.8 mWeight 220 lb or 99.8 kgBMI 30.7Temperature: 97.3 F or 36.3 CPulse Oximetry: 99 % at rest on no oxygen Chief Complaint: Addressed in HPI Problems or conditions discussed in the HPI were the only ones reviewed during the encounter.Only social and family history addressed in the HPI were reviewed during this encounter. A significant, separate E/M service was performed to evaluate the current and new problems. Attendants(s) + Father and MotherConstitutional and Systemic Symptoms:none Medication Reconciliation: from medication list. History of Present Illness Reviewed the findings of the preventative health visit. Addressed all areas with the patient, patient's family or caregivers. Preventative examinations and testing immunizations - vaccinations and colonic neoplasm screening all reviewed and ordered where patient was amenable to the recommendations. Cognitive function see HPI but demonstrated no overall change in cognitive status . Depression addressed and where necessary medications were adjusted or instituted. End of life and living will briefly discussed with patient and where these can be filled out and legally executed. Other blood and imaging studies were ordered if considered necessary. Other recommendations may be found in the encounter note. #1. Complaining of bright red rectal bleeding. On examination of the rectal area there is some evidence of probable mild external and possibly some internal hemorrhoids. Due to pain and discomfort rectal examination was deferred at this time since he is going to be referred to a surgeon for further evaluation.: #2. Hx of esophageal reflux currently stable. [...] Discussed use of H2 antagonists NA. #3. Type II Hypercholesterolaemia: Currently taking medication and tolerating well. No interval complaints of any muscle pain or arthralgia. No significant liver changes with medications. Last lipid panel: excellent control. Therapy reviewed regarding treatment of cholesterol management and include diet and Atorvastatin Calcium. #4. Klinefelter syndrome clinically stable no interval complaints of any new problems. A mental status examination was well within acceptable ranges.: #5. Hx of obesity. Currently Class 1 Obesity [...] offered to be evaluated and instructed by securities compliance examiner on weight loss diet. Wellness Evaluation PHQ-2 Score Last Two Weeks Last Two Weeks: 0: Not at all 1: Several Days 2: More than half 3: Almost Every day #1. Little interest or pleasure in doing things: Not At All :Score 0#2. Feeling down, depressed, or hopeless: Not At All :Score 0Minimal or no Depression 0Function Status Staging: No demonstrable functional decline Basic ADLS AmbulationNormalGroomingGener al Personal Hygiene NormalToiletrySelf SufficientDressingDresses Without Assistance Instrumental ADLS Managing Finances NoManaging Health NoShopping YesPreparing Meals YesUsing Technology YesHouse Work YesTaking Care of Pets YesTaking Care Children NoTransportation No Additional Topics Additional Comments Topics listed or those only pertinent to the patient or care givers. Mini Mental Status Exam OrientationYear 1Season 1Month 1Date 1Day 1Score: 5 LocationCountry 1County 1City 1Facility 1Room 1Score: 5 RegistrationHouse 1Car 1Airplane 1Score: 3 AttentionD 1L 1R 1O 1W 1Score: 5 RecallHouse 1Car 1Airplane 1Score: 3 LanguageWatch 1Pencil 1Score: 2 RepetitionNo ifs, ands or buts 1Score: 1 SentenceWrite a Sentence 1Sentence: This teresita is blue.Score: 1 ReadingClose Eyes 1Score: 1 PentagonsCopy Design 1Score: 1 CommandHand 1Fold In Half 1Put Down 1Score: 3 Total Test Score: 30 /30 Normal Possible Functional ImpairmentActivities of Daily Living: Probably NormalCommunication: Probably NormalMemory: Probably Normal Social and Physical Activities Drinking History: NoneExercise 20 Minutes per Week: Yes, some of timeDifficulty Driving Car: NoOther Problems:NoneSmoking HistoryDoes not smokeCannabis HistoryDoes Not Use End Of Wellness Section Active Medication ListPantoprazole 40 MG TABLET One DailyAtorvastatin Calcium 20 MG TABLET One Daily Adverse Drug Reactions ReviewedPenicillin Rash Vaccination and Immunization(X) 2023-03 INFLUENZA(X) Tetanus or TD Recommended(X) Covid or Booster RecommendedImmunizations and Vaccinations Discussed and Implemented if feasible In the Office. Else referred to pharmacies. Surgical [id number] Oral Surgery Preventative Testing: (X) Due (?) Optional( ) 08/29/2023 Albumin 4.9 G/DL( ) 03/13/2023 Upper Endoscopy 1Preventative Testing Discussed with Patient and Attendants Social HistoryDoes not smokeDrinks sociallyDisabled and not sexually active Family HistoryMother living 61 good healthFather living 70 with ASHD and CholesterolTwo brothers both living one with psoriasis. Radha Clemons MD [address] [place] [address], [place] [address], [place], [address], [place] [facility] 12/10/2024 15:07:52
[2025-01-04 00:38] LABS: Hematocrit 39.4 % (42.0-52.0); Hemoglobin 12.7 g/dL (14.0-18.0); Immature Granulocyte Percent A 0.3 % (0-0.5); Lymphocytes Absolute Auto 1.59 K/mm3 (0.9-3.2); Mean Corpuscular HGB Conc 32.2 g/dl (32-36); Mean Corpuscular Hemoglobin 28.7 pg (26-34); Mean Corpuscular Volume 89.1 fl (80-100); Nucleated Red Blood Cells Absolute Auto 0.000 K/mm3 (0.0-0.012); Nucleated Red Blood Cells Perc 0.0 % (0.0-0.2); Platelet Count Result 230 k/mm3 (150-375); Red Blood Count 4.42 M/mm3 (4.6-6.20); White Blood Count 7.9 K/mm3 (4.5-10.0)
[2025-01-04 00:54] LABS: INR 1.0; Prothrombin Time 13.6 Seconds (11.1-14.7)
[2025-01-04 00:55] LABS: Partial Thromboplastin Time 27.0 Seconds (22.3-36.8)
[2025-01-04 00:57] LABS: Alanine Aminotransferase 32 U/L (6-50); Albumin Level 4.5 g/dL (3.5-5.1); Alkaline Phosphatase 107 U/L (38-126); Anion Gap 9 mmol/L (4-12); Aspartate Amino Transferase 28 U/L (17-59); Bilirubin,Total 0.6 mg/dL (0.2-1.3); Blood Urea Nitrogen 9 mg/dL (9-20); Calcium 8.8 mg/dL (8.4-10.2); Carbon Dioxide 27 mmol/L (22-30); Chloride 106 mmol/L (98-107); Estimated CRCL calculation 132 ml/min; Estimated Glomerular Filt Rate > 60; Glucose 137 mg/dL (65-110); Lipase 265 U/L (23-300); Potassium 3.8 mmol/L (3.4-5.0); Sodium 142 mmol/L (137-145); Total Protein 7.2 g/dL (6.3-8.2)
[2025-01-04 01:09] LABS: Troponin I < 0.012 ng/mL (0.000-0.034)
[2025-01-04 01:24] VITALS: BP 122/74; PULSE 78; RESP 12; O2SAT 100
[2025-01-04 01:26] VITALS: PULSE 76; O2SAT 100
[2025-01-04 02:01] VITALS: BP 116/78; PULSE 77; RESP 19; O2SAT 100
--- NOTE | 2025-01-04 02:20 | ED.CHESTPAIN ---
HPI - Chest Pain General Chief Complaint: Chest Pain Stated Complaint: CHEST PAIN SINCE 2314 Time Seen by Provider: 01/04/25 02:12 History of Present Illness HPI narrative: 39-year-old male with a history of gastritis and esophageal stricture presenting to the emergency department with epigastric chest discomfort. States the pain started in his epigastrium and radiated towards his esophagus. Occurred earlier today after drinking an energy drink. Stopped prior to my initial evaluation. No longer having any symptoms. No nausea or vomiting. Denies any back pain, abdominal pain, fever, chills or present chest pain. No shortness of breath or dyspnea/diaphoresis during the episode. No traumatic injuries. Family was concerned given he has a family history of cardiac disease per patient himself has no coronary disease or cardiac disease to his knowledge. Does take atorvastatin daily as well as a pantoprazole daily. Last EGD was done last year showing gastritis. Related Data Home Medications ?Medication ?Instructions ?Recorded ?Confirmed ?Last Taken ?Type atorvastatin 20 mg tablet (Lipitor) 20 mg PO DAILY 11/23/24 12/24/24 Unknown History Allergies Allergy/AdvReac Type Severity Reaction Status Date / Time Penicillins Allergy Hives Verified 01/04/25 00:03 Review of Systems Review of Systems: [facility] Past Medical History Medical History Hx of gastroesophageal reflux (GERD) Hx of Klinefelter syndrome Hx of hypercholesterolemia Impacted cerumen of both ears Wrist fracture Dysphagia Social History Social History Smoking status: Current every day smoker Tobacco type: e-cigarettes/vaping Alcohol intake: current Drinks per week: 4 Substance use type: does not use Living arrangements: with family Spiritual care concerns: No Exam Narrative: GENERAL: [Well-appearing, well-nourished, and in no acute distress.] HEAD: [Normocephalic, atraumatic.] EYES: [PERRLA and EOMI.] ENT: Nares clear, no rhinorrhea or epistaxis. Mucous membranes moist. NECK: Supple. CHEST: [Clear to auscultation. No respiratory distress.] HEART: [Regular rate and rhythm]. No murmur heard. [Normal peripheral pulses.] ABDOMEN: [Soft, nondistended], [nontender], [No rigidity or guarding] EXTREMITIES: Normal range of motion. [No edema.] SKIN: Warm, dry, no rash. NEURO: [No focal deficits]. Alert and oriented [x3.] PSYCH: [Normal mood and affect.] Course Vital Signs Vital signs: Vital Signs Temperature 36.8 C 01/04/25 00:05 Pulse Rate 94 01/04/25 00:05 Respiratory Rate 16 01/04/25 00:05 Blood Pressure 140/75 01/04/25 00:05 Pulse Oximetry 100 01/04/25 00:05 Oxygen Delivery Room Air 01/04/25 00:05 Temperature 36.8 C 01/04/25 00:05 Pulse Rate 77 01/04/25 02:01 Respiratory Rate 19 01/04/25 02:01 Blood Pressure 116/78 01/04/25 02:01 Pulse Oximetry 100 01/04/25 02:01 Oxygen Delivery Room Air 01/04/25 01:26 MDM - Chest Pain MDM Narrative Medical decision making narrative: 39-year-old male with a history of gastritis and esophageal stricture presenting to the emergency department with epigastric chest discomfort. States the pain started in his epigastrium and radiated towards his esophagus. Occurred earlier today after drinking an energy drink. Stopped prior to my initial evaluation. No longer having any symptoms. No nausea or vomiting. Denies any back pain, abdominal pain, fever, chills or present chest pain. No shortness of breath or dyspnea/diaphoresis during the episode. No traumatic injuries. Family was concerned given he has a family history of cardiac disease per patient himself has no coronary disease or cardiac disease to his knowledge. Does take atorvastatin daily as well as a pantoprazole daily. Last EGD was done last year showing gastritis. Patient has a benign physical examination is overall well-appearing with normal vital signs. Cardiac workup with single troponin will be sufficient to rule out ACS. EKG chest x-ray and labs were reviewed and unremarkable. Troponin negative. Discussed with family who felt comfortable going home given that patient has been asymptomatic during his duration of stay in the ED. Has close follow-up available and given return precautions. Medical Records Data Attestation: I reviewed the patient's medical records. Lab Data Attestation: I reviewed the patient's lab results. 01/04/25 00:25 01/04/25 00:24 Labs: Lab Results 01/04/25 01/04/25 Range/Units 00:24 00:25 WBC 7.9 (4.5-10.0) K/mm3 RBC 4.42 L (4.6-6.20) M/mm3 Hgb 12.7 L (14.0-18.0) g/dL Hct 39.4 L (42.0-52.0) % MCV 89.1 (80-100) fl MCH 28.7 (26-34) pg MCHC 32.2 (32-36) g/dl RDW 13.7 (11.5-14.5) % Plt Count 230 (150-375) k/mm3 MPV 10.2 (7.4-10.4) fl Immature Gran % (Auto) 0.3 (0-0.5) % Neut % (Auto) 68.5 (45.5-73.1) % Lymph % (Auto) 20.2 (18.3-44.2) % Foard % (Auto) 8.2 (2.6-8.5) % Eos % (Auto) 2.4 (0-4.4) % Baso % (Auto) 0.4 (0.2-1.2) % Lymph # (Auto) 1.59 (0.9-3.2) K/mm3 Foard # (Auto) 0.7 H (0.1-0.6) K/mm3 Eos # (Auto) 0.2 (0-0.3) K/mm3 Baso # (Auto) 0.0 (0.0-0.1) K/mm3 Abs Immat Gran (auto) 0.02 (0.00-0.031) K/mm3 Absolute Neuts (auto) 5.4 (1.3-6.7) K/mm3 Absolute Nucleated RBC 0.000 (0.0-0.012) K/mm3 Nucleated RBC % 0.0 (0.0-0.2) % PT 13.6 (11.1-14.7) Seconds INR 1.0 APTT 27.0 (22.3-36.8) Seconds Sodium 142 (137-145) mmol/L Potassium 3.8 (3.4-5.0) mmol/L Chloride 106 (98-107) mmol/L Carbon Dioxide 27 (22-30) mmol/L Anion Gap 9 (4-12) mmol/L BUN 9 (9-20) mg/dL Creatinine 0.79 (0.7-1.3) mg/dL Estim Creat Clear Calc 132 ml/min Estimated GFR > 60 (59 - ) Glucose 137 H (65-110) mg/dL Calcium 8.8 (8.4-10.2) mg/dL Total Bilirubin 0.6 (0.2-1.3) mg/dL AST 28 (17-59) U/L ALT 32 (6-50) U/L Alkaline Phosphatase 107 (38-126) U/L Troponin I < 0.012 (0.000-0.034) ng/mL Total Protein 7.2 (6.3-8.2) g/dL Albumin 4.5 (3.5-5.1) g/dL Lipase 265 (23-300) U/L Imaging Data Attestation: I personally reviewed and interpreted this imaging study as follows: My impression: Unremarkable chest x-ray Discharge Plan Discharge Clinical Impression: Chest pain, Gastritis Patient Disposition: Home Condition: Stable Instructions: Antibiotic Form, Chest Pain (ED), Gastritis (DC) Additional Instructions: Laboratory studies EKG and cardiac markers are all reassuring and normal. Normal vital signs. No urgent or emergent concerns raise today. Symptoms likely consistent with his known history of gastritis. If symptoms persist for prolonged period of time, new symptoms or worrisome symptoms develop for any other urgent or emergent concerns are raised please seek re-evaluation otherwise follow-up with regular primary care provider. You can take Maalox, Pepcid or Tums for symptoms like this in the future. Patient Language: Vietnamese Prescriptions: No Action atorvastatin [Lipitor] 20 mg tablet 20 mg PO DAILY pantoprazole 40 mg tablet,delayed release (DR/EC) 40 mg PO .daily Qty: 30 11RF Follow-up/Referrals: Deonte,Stephen Duran MD [Primary Care Provider] Time of Disposition: 02:20
== END 2025-01-04 02:30 | disposition home or self-care (01) ==
LOC: ANHED 02:23
PROVIDERS: Emergency Provider Student in an Organized Health Care Education/Training Program; PCP Internal Medicine
DX: R07.9 Chest pain, unspecified (principal); K29.70 Gastritis, unspecified, without bleeding; K21.9 Gastro-esophageal reflux disease without esophagitis; E78.5 Hyperlipidemia, unspecified
CPT/HCPCS: 36415; 71046; 80053; 83690; 84484; 85025; 85610; 85730; 93005; 99284